=== PATIENT | male | born 1960 | race Caucasian/White ===

== ENCOUNTER → 2017-12-10 13:06 | Outpatient (CLI) | payer MEDICAID, SELFPAY ==
--- NOTE | 2017-12-10 13:18 | XR_ITS ---
XR hand RT min 3V Ordering Physician: Juan Mcgill MD Patient Age: 57 years: Male HISTORY: ITS.REASON: INJURY TO RT THUMB Pain right thumb. Injury back to June TECHNIQUE: 3 views right hand attention thumb COMPARISON :No previous relevant studies available FINDINGS The right hand is intact with no fracture nor dislocation. This hand study includes the right wrist. There are definite developing arthritic changes at the radial aspect of the wrist. Most evident narrowing and mild sclerosis and mild hypertrophic changes seen about the distal scaphoid /navicular bone-at its articulation with the trapezium and trapezoid. There may be some very early degenerative changes at the first carpal metacarpal joint but these are are less evident; minimal/equivocal IMPRESSION: 1.. No evident fracture nor dislocation. Right hand itself intact 2. Arthritic changes at the radial aspect Wrist, most pronounced about distal articulation of the scaphoid.... Only question some early degenerative changes at the first carpal-metacarpal joint. The thumb itself otherwise appears intact.
== END ==
PROVIDERS: PCP Internal Medicine Adolescent Medicine; Visit Provider Internal Medicine Adolescent Medicine
DX: S69.91XA Unspecified injury of right wrist, hand and finger(s), initial encounter (principal)
CPT/HCPCS: 73130

== ENCOUNTER → 2017-12-11 09:55 | Outpatient (CLI) | payer MEDICAID, SELFPAY ==
[2017-12-11 10:20] LABS: Basophils # 0.1 K/mm3 (0-0.2); Basophils % 1.1 % (0.1-2.0); Eosinophils # 0.3 K/mm3 (0.0-0.4); Eosinophils % 5.5 % (0.1-12.0); Hematocrit 49.3 % (42.0-52.0); Hemoglobin 16.9 g/dL (14.1-18.0); Lymphocytes # 1.8 K/mm3 (0.7-4.5); Lymphocytes % 34.7 K/mm3 (10-50); Mean Corpuscular HGB Conc 34.4 g/dL (31.8-35.4); Mean Corpuscular Volume 87.3 fl (80-94); Mean Platelet Volume 7.6 fl (7.4-10.4); Monocytes # 0.3 K/mm3 (0.1-1.0); Monocytes % 6.1 % (1.7-9.3); Neutrophils # 2.7 K/mm3 (1.8-7.8); Neutrophils % 52.6 % (37.0-80.0); Platelet Count 216 K/mm3 (142-424); Red Blood Count 5.65 M/mm3 (4.60-6.20); Red Cell Distribution Width 12.8 % (11.5-17.5); White Blood Count 5.2 K/mm3 (4.8-10.8)
[2017-12-11 11:50] LABS: Alanine Aminotransferase 51 U/L (12-78); Albumin Level 3.9 gm/dL (3.4-5.0); Albumin/Globulin Ratio 1.3 (1.1-1.8); Alkaline Phosphatase 107 U/L (46-116); Anion Gap 11.6 mEq/L (5-15); Aspartate Amino Transferase 28 U/L (15-37); Bilirubin,Total 0.7 mg/dL (0.2-1.0); Blood Urea Nitrogen 10 mg/dL (7-18); Calcium 8.9 mg/dL (8.5-10.1); Carbon Dioxide 31 mmol/L (21.0-32.0); Chloride 107 mmol/L (98-107); Chol/HDL Ratio 6.2 (1-3.5); Cholesterol 228 mg/dL (140-200); Creatinine,Serum 0.99 mg/dL (0.70-1.30); Estimated Glomerular Filt Rate 78 ml/min (>60); GFR (African American) 94 ML/MIN (>60); Globulin 2.9 gm/dl (1.3-3.2); Glucose 95 mg/dL (74-106); HDL Cholesterol 37 mg/dL (27-67); LDL Cholesterol 148 mg/dL (0-130); Potassium 4.6 mmoL/L (3.5-5.1); Sodium 145 mmol/L (136-145); Total Protein,Serum 6.8 gm/dL (6.4-8.2); Triglycerides 213 mg/dL (30-200); VLDL Cholesterol 43 mg/dL (0-40)
== END ==
PROVIDERS: Visit Provider Internal Medicine Adolescent Medicine
DX: D12.6 Benign neoplasm of colon, unspecified (principal); E78.2 Mixed hyperlipidemia
CPT/HCPCS: 36415; 80053; 80061; 85025

== ENCOUNTER → 2017-12-17 08:47 | Outpatient (CLI) | payer MEDICAID, SELFPAY ==
--- NOTE | 2017-12-17 09:01 | CT_ITS ---
CT abdomen pelvis w con CLINICAL INDICATION: Abdominal distention, follow-up hepatic cysts ITS.REASON: liver cyst ORDERING PHYSICIAN: Ezequiel Payne MD PATIENT AGE: 57 years COMPARISON: 09/11/2016 TECHNIQUE: Axial images obtained with sagittal and coronal reformats. All CT scans at the facility use one or more dose reduction, viz: automated exposure control; ma/kV adjustment per patient size (including targeted exams where dose is matched to indication; i.e. head); or iterative reconstruction technique. Images are obtained in 30 seconds, 60 seconds, and 5 minute delayed following contrast administration PROCEDURE: Oral Contrast: Redicat IV Contrast: 75 mL's of Isovue-370. FINDINGS: Lung bases are clear. Numerous varying sized isodense lesions of the liver in both right and left hepatic lobe. These do not demonstrate contrast enhancement and are consistent with multiple hepatic cysts. The largest single lesion is in the hepatic measuring 3.7 cm previously 3.5 cm. In the left hepatic lobe there is a lesion that measures 3.4 cm previously 3 cm. No obvious mural enhancement. Spleen, adrenal glands, pancreas, kidneys, and gallbladder have an unremarkable appearance. No intestinal structure free air. There is mild focal thickening of the anterior abdominal wall superior to the umbilicus similar to the previous exam possibly related to postsurgical changes or scarring. There is tiny umbilical hernia. No pelvic mass or abnormal fluid collection or focal pelvic inflammatory change. No evidence of appendicitis or diverticulitis. No acute bony anomalies. IMPRESSION: 1. Multiple hepatic cysts slightly more prominent compared to the previous study. 2. No other changes with no acute finding
== END ==
PROVIDERS: Family Provider Internal Medicine Adolescent Medicine; PCP Internal Medicine Adolescent Medicine; Visit Provider Surgery
DX: K76.89 Other specified diseases of liver (principal)
CPT/HCPCS: 74177; Q9967

== ENCOUNTER → 2018-05-25 12:55 | Outpatient (CLI) | payer MEDICAID, SELFPAY ==
[2018-05-25 14:18] LABS: Alanine Aminotransferase 38 U/L (12-78); Albumin Level 3.8 gm/dL (3.4-5.0); Albumin/Globulin Ratio 1.3 (1.1-1.8); Alkaline Phosphatase 85 U/L (46-116); Anion Gap 15.1 mEq/L (5-15); Aspartate Amino Transferase 17 U/L (15-37); Bilirubin,Total 0.8 mg/dL (0.2-1.0); Blood Urea Nitrogen 11 mg/dL (7-18); Calcium 8.4 mg/dL (8.5-10.1); Carbon Dioxide 26 mmol/L (21.0-32.0); Chloride 105 mmol/L (98-107); Chol/HDL Ratio 5.5 (1-3.5); Cholesterol 225 mg/dL (140-200); Creatinine,Serum 1.02 mg/dL (0.70-1.30); Estimated Glomerular Filt Rate 75 ml/min (>60); GFR (African American) 91 ML/MIN (>60); Glucose 96 mg/dL (74-106); HDL Cholesterol 41 mg/dL (27-67); LDL Cholesterol 146 mg/dL (0-130); Potassium 4.1 mmoL/L (3.5-5.1); Prostate Specific Ag Screen 0.8 ng/mL (0.0-4.0); Sodium 142 mmol/L (136-145); Total Protein,Serum 6.8 gm/dL (6.4-8.2); Triglycerides 189 mg/dL (30-200); VLDL Cholesterol 38 mg/dL (0-40)
== END ==
PROVIDERS: Visit Provider Nurse Practitioner Family
DX: E78.2 Mixed hyperlipidemia (principal); N40.0 Benign prostatic hyperplasia without lower urinary tract symptoms; Z12.5 Encounter for screening for malignant neoplasm of prostate
CPT/HCPCS: 36415; 80053; 80061; G0103

== ENCOUNTER → 2018-09-12 11:12 | Outpatient (CLI) | payer MEDICAID, SELFPAY ==
--- NOTE | 2018-09-12 11:16 | XR_ITS ---
XR ankle wt bearing LT min 3V HISTORY: ITS.REASON: Pain ORDERING PHYSICIAN: Dina Tapia DPM PATIENT AGE: 58 years Comparison: None FINDINGS: No fracture or dislocation. No lytic or blastic change. There is normal mineralization.. The joint spaces are well-preserved. No significant degenerative/arthritic changes. No erosive changes evident. IMPRESSION: Negative ankle, no acute finding
--- NOTE | 2018-09-12 11:16 | XR_ITS ---
XR foot wt bearing RT 3V HISTORY: Foot pain, prior foot surgeries ITS.REASON: pain ORDERING PHYSICIAN: Dina Tapia DPM PATIENT AGE: 58 years COMPARISON: None FINDINGS: There are no previous exams available for comparison. There is calcaneocuboid fusion with pes planus. It is uncertain whether this fusion is congenital or due to arthrodesis. Please correlate with surgical history. Mild osteoarthritic changes of the posterior talocalcaneal joint. No acute fracture or dislocation. 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
--- NOTE | 2018-09-12 11:16 | XR_ITS ---
XR ankle wt bearing RT min 3V HISTORY: ITS.REASON: pain ORDERING PHYSICIAN: Dina Tapia DPM PATIENT AGE: 58 years Comparison: None FINDINGS: There are no previous exams available for comparison. There is mild flattening of the talus anteriorly. No obvious focal talar dome defects. There is calcaneocuboid fusion with pes planus. It is uncertain whether this fusion is congenital or due to arthrodesis. Please correlate with surgical history. Mild osteoarthritic changes of the posterior talocalcaneal joint. No acute fracture or dislocation. IMPRESSION: 1. Flattening of the talus anteriorly 2. Fusion of the calcaneocuboid joint with pes planus and mild osteoarthritic changes of the posterior subtalar joint
--- NOTE | 2018-09-12 11:16 | XR_ITS ---
XR foot wt bearing LT 3V HISTORY: ITS.REASON: pain ORDERING PHYSICIAN: Dina Tapia DPM PATIENT AGE: 58 years COMPARISON: None FINDINGS: No fracture or dislocation. No lytic or blastic change. There is normal mineralization.. The joint spaces are well-preserved. No significant degenerative/arthritic changes. No erosive changes evident. IMPRESSION: Negative, no acute finding
== END ==
PROVIDERS: PCP Internal Medicine Adolescent Medicine; Visit Provider Podiatrist
DX: M79.672 Pain in left foot (principal); M79.671 Pain in right foot
CPT/HCPCS: 73610; 73630

== ENCOUNTER → 2019-08-14 09:42 | Outpatient (CLI) | payer OTHER, SELFPAY ==
[2019-08-14 10:02] LABS: Basophils # 0.1 K/mm3 (0-0.2); Basophils % 1.4 % (0.1-2.0); Eosinophils # 0.4 K/mm3 (0.0-0.4); Eosinophils % 5.6 % (0.1-12.0); Hematocrit 49.3 % (42.0-52.0); Hemoglobin 16.7 g/dL (14.1-18.0); Lymphocytes # 1.9 K/mm3 (0.7-4.5); Lymphocytes % 29.8 % (10-50); Mean Corpuscular HGB Conc 33.8 g/dL (31.8-35.4); Mean Corpuscular Hemoglobin 29.8 pg (27.0-31.2); Mean Corpuscular Volume 88.1 fl (80-94); Mean Platelet Volume 7.6 fl (7.4-10.4); Monocytes # 0.4 K/mm3 (0.1-1.0); Monocytes % 5.7 % (1.7-9.3); Neutrophils # 3.7 K/mm3 (1.8-7.8); Neutrophils % 57.5 % (37.0-80.0); Platelet Count 244 K/mm3 (142-424); Red Cell Distribution Width 13.1 % (11.5-17.5); White Blood Count 6.5 K/mm3 (4.8-10.8)
[2019-08-14 11:30] LABS: Alanine Aminotransferase 34 U/L (12-78); Albumin Level 3.8 gm/dL (3.4-5.0); Albumin/Globulin Ratio 1.4 (1.1-1.8); Alkaline Phosphatase 88 U/L (46-116); Anion Gap 13.6 mEq/L (5-15); Aspartate Amino Transferase 19 U/L (15-37); Bilirubin,Total 0.8 mg/dL (0.2-1.0); Blood Urea Nitrogen 13 mg/dL (7-18); Calcium 8.7 mg/dL (8.5-10.1); Carbon Dioxide 30 mmol/L (21.0-32.0); Chloride 109 mmol/L (98-107); Chol/HDL Ratio 4.7 (1-3.5); Cholesterol 196 mg/dL (140-200); Creatinine,Serum 1.19 mg/dL (0.70-1.30); Estimated Glomerular Filt Rate 63 ml/min (>60); GFR (African American) 76 ML/MIN (>60); Globulin 2.7 gm/dl (1.3-3.2); Glucose 97 mg/dL (74-106); HDL Cholesterol 42 mg/dL (27-67); LDL Cholesterol 122 mg/dL (0-130); Potassium 4.6 mmoL/L (3.5-5.1); Prostate Specific Ag Screen 0.8 ng/mL (0.0-4.0); Sodium 148 mmol/L (136-145); Total Protein,Serum 6.5 gm/dL (6.4-8.2); Triglycerides 158 mg/dL (30-200); VLDL Cholesterol 32 mg/dL (0-40)
== END ==
PROVIDERS: Visit Provider Nurse Practitioner Family
DX: D12.6 Benign neoplasm of colon, unspecified (principal); E78.2 Mixed hyperlipidemia; Z12.5 Encounter for screening for malignant neoplasm of prostate; N40.0 Benign prostatic hyperplasia without lower urinary tract symptoms
CPT/HCPCS: 36415; 80053; 80061; 85025; G0103

== ENCOUNTER → 2020-09-28 09:03 | Outpatient (CLI) | payer OTHER, SELFPAY ==
[2020-09-28 09:20] LABS: Basophils # 0.1 K/mm3 (0-0.2); Basophils % 0.9 % (0.1-2.0); Eosinophils # 0.2 K/mm3 (0.0-0.4); Hematocrit 46.2 % (42.0-52.0); Lymphocytes # 3.2 K/mm3 (0.7-4.5); Lymphocytes % 27.9 % (10-50); Mean Corpuscular HGB Conc 34.7 g/dL (31.8-35.4); Mean Corpuscular Hemoglobin 29.8 pg (27.0-31.2); Mean Corpuscular Volume 85.9 fl (80-94); Mean Platelet Volume 7.5 fl (7.4-10.4); Monocytes # 0.6 K/mm3 (0.1-1.0); Monocytes % 5.5 % (1.7-9.3); Neutrophils # 7.2 K/mm3 (1.8-7.8); Neutrophils % 63.6 % (37.0-80.0); Platelet Count 241 K/mm3 (142-424); Red Blood Count 5.38 M/mm3 (4.60-6.20); Red Cell Distribution Width 13.2 % (11.5-17.5); White Blood Count 11.3 K/mm3 (4.8-10.8)
[2020-09-28 10:18] LABS: Chloride 105 mmol/L (98-107)
[2020-09-28 10:19] LABS: Potassium 3.8 mmoL/L (3.5-5.1); Sodium 141 mmol/L (136-145)
[2020-09-28 10:21] LABS: Alanine Aminotransferase 30 U/L (12-78); Albumin/Globulin Ratio 1.6 (1.1-1.8); Alkaline Phosphatase 82 U/L (38-126); Anion Gap 8.8 mEq/L (5-15); Aspartate Amino Transferase 26 U/L (17-59); Bilirubin,Total 0.9 mg/dl (0.2-1.3); Blood Urea Nitrogen 11 mg/dl (9-20); Carbon Dioxide 31 mmol/L (22.0-30.0); Estimated Glomerular Filt Rate 76 ml/min (>60); GFR (African American) 92 ML/MIN (>60); Globulin 2.5 g/dL (1.3-3.2); Total Protein,Serum 6.5 g/dl (6.3-8.2)
[2020-09-28 10:22] LABS: Calcium 8.8 mg/dl (8.4-10.2); Chol/HDL Ratio 4.6 (1-3.5); Cholesterol 203 mg/dl (140-200); Glucose 84 mg/dl (74-100); HDL Cholesterol 44 mg/dl (40-60); Triglycerides 165 mg/dl (30-150); VLDL Cholesterol 33 mg/dL (0-40)
[2020-09-28 10:33] LABS: Direct LDL Cholesterol 126.36 mg/dL (100-129)
== END ==
PROVIDERS: Visit Provider Nurse Practitioner Family
DX: E78.2 Mixed hyperlipidemia (principal); K76.89 Other specified diseases of liver
CPT/HCPCS: 36415; 80053; 80061; 85025

== ENCOUNTER → 2021-05-01 11:21 | Outpatient (CLI) | payer OTHER, SELFPAY ==
[2021-05-01 11:32] LABS: Basophils # 0.1 K/mm3 (0-0.2); Eosinophils # 0.3 K/mm3 (0.0-0.4); Hematocrit 49.7 % (42.0-52.0); Mean Corpuscular HGB Conc 34.2 g/dL (31.8-35.4); Mean Corpuscular Hemoglobin 30.3 pg (27.0-31.2); Mean Corpuscular Volume 88.8 fl (80-94); Mean Platelet Volume 7.9 fl (7.4-10.4); Monocytes # 0.4 K/mm3 (0.1-1.0); Monocytes % 6.3 % (1.7-9.3); Neutrophils # 3.5 K/mm3 (1.8-7.8); Neutrophils % 55.7 % (37.0-80.0); Platelet Count 230 K/mm3 (142-424); Red Cell Distribution Width 13.1 % (11.5-17.5); White Blood Count 6.2 K/mm3 (4.8-10.8)
[2021-05-01 12:09] LABS: Chloride 104 mmol/L (98-107); Sodium 142 mmol/L (136-145)
[2021-05-01 12:11] LABS: Alanine Aminotransferase 25 U/L (12-78); Alkaline Phosphatase 84 U/L (38-126); Aspartate Amino Transferase 29 U/L (17-59); Bilirubin,Total 0.9 mg/dl (0.2-1.3); Blood Urea Nitrogen 10 mg/dl (9-20); Estimated Glomerular Filt Rate 86 ml/min (>60); GFR (African American) 104 ML/MIN (>60)
[2021-05-01 12:12] LABS: Albumin Level 3.9 g/dl (3.5-5.0); Albumin/Globulin Ratio 1.6 (1.1-1.8); Carbon Dioxide 31 mmol/L (22.0-30.0); Chol/HDL Ratio 5.1 (1-3.5); Cholesterol 190 mg/dl (140-200); Creatine Kinase 37 U/L (55-170); Globulin 2.5 g/dL (1.3-3.2); Glucose 96 mg/dl (74-100); HDL Cholesterol 37 mg/dl (40-60); Magnesium 1.8 mg/dl (1.6-2.3); Total Protein,Serum 6.4 g/dl (6.3-8.2); Triglycerides 190 mg/dl (30-150); VLDL Cholesterol 38 mg/dL (0-40)
[2021-05-01 13:08] LABS: Thyroid Stimulating Hormone 2.77 uIU/mL (0.465-4.68)
== END ==
PROVIDERS: Visit Provider Nurse Practitioner Family
DX: E78.2 Mixed hyperlipidemia (principal); R25.2 Cramp and spasm
CPT/HCPCS: 36415; 80053; 80061; 82550; 83735; 84443; 85025

== ENCOUNTER → 2021-05-16 09:58 | Outpatient (CLI) | payer OTHER, SELFPAY ==
--- NOTE | 2021-05-16 10:03 | XR_ITS ---
PROCEDURE: XR LUMBAR SPINE MIN 4V CLINICAL INDICATION: LUMBAGO W/ SCIATICA, RT SIDE COMPARISON: No exams were available for comparison FINDINGS: There is normal curvature and alignment. All lumbar vertebrae appear intact and disc spaces are well maintained throughout. There is no pars defect. The SI joints appear normal. There are mild hypertrophic facet changes at the L4-5 and L5-S1 levels. IMPRESSION: Mild hypertrophic facet changes lower lumbar spine otherwise unremarkable study Dictated by: Dr. Miguel Angel Olvera MD 05/16/2021 10:35 Dr. Miguel Angel Olvera MD in [facility] 05/16/2021 10:35
== END ==
PROVIDERS: PCP Nurse Practitioner Family; Visit Provider Nurse Practitioner Family
DX: M54.41 Lumbago with sciatica, right side (principal)
CPT/HCPCS: 72110

== ENCOUNTER → 2021-06-12 08:31 | Outpatient (CLI) | payer OTHER, SELFPAY ==
--- NOTE | 2021-06-12 08:35 | FL_ITS ---
PROCEDURE: FL UPPER GI W AIR CLINICAL INDICATION: GERD COMPARISON: No exams were available for comparison TECHNIQUE: FLUOROSCOPY TIME : 2 minutes and 9 seconds FINDINGS: The esophagus, stomach, and duodenum have an unremarkable appearance.There is no evidence of hiatal hernia. No ulcer or mass evident. No mucosal abnormalities apparent. There is normal peristalsis. The duodenal C-loop is nondisplaced. Reflux was not demonstrated during the exam. IMPRESSION: Unremarkable upper GI. Dictated by: Hi Gallegos MD 06/12/2021 17:04 Hi Gallegos MD in [facility] 06/12/2021 17:04
== END ==
PROVIDERS: PCP Nurse Practitioner Family; Visit Provider Nurse Practitioner Family
DX: K21.00 Gastro-esophageal reflux disease with esophagitis, without bleeding (principal)
CPT/HCPCS: 74246

== ENCOUNTER 2021-07-01 14:30 | Outpatient (RCR) | payer OTHER, SELFPAY ==
--- NOTE | 2021-05-16 11:29 | HMH.PTOPEV ---
PT Outpatient Evaluation Rehab PT Outpatient Evaluation Start: 05/16/21 11:19 Freq: Status: Active Protocol: Document 05/16/21 11:19 EDUIN (Rec: 05/16/21 11:29 EDUIN [id number]) Electronically Signed By Dick Palacio, PT 05/16/21 11:19 Outpatient Therapy Subjective History Subjective History Pt reports insidious onset right sided LBP beginning ~2-3 months ago. Pt reports pain refers from right hip to right foot w/'throbbing, weakness, and sometimes it feels like my knee wants to buckle backwards'. Pt reports previous right achilles injury , and h/o club foot. 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 Chief Complaint Pain,Stiff,Clicks,Gives out/ Unstable,Paresthesia,Weakness Symptom Type Ache,Throb,Sharp,Dull,Stabbing ,Burning,Numbness,Tingling Symptoms Relieved By Rest/Positioning,Heat Symptoms Aggravated By Sitting,Standing,Bending/ Stooping,Physical Activity, Twisting,Walking,Lifting Prior Functional Limitations Lifting,Housework,Standing, Sitting,Walking,Bending/ Stooping Current Functional Limitations Lifting,Housework,Standing, Sitting,Walking,Bending/ Stooping Symptom Description Constant but Variable Level of pain today (0-10) 5 Pain scale - at its best (0-10) 5 Pain scale - at its worst (0-10) 10 Lumbopelvic Eval Posture Thoracic Spine Posture Standing Position Flattened Lumbar Spine Posture Standing Position Flattened Assistive device Assistive Devices None / NA Gait Observation General Gait Pattern Observation Antalgic Gait Palapation tenderness right lumbar spinal tenderness Yes: 3/4 paraspinal tenderness Yes: 3/4 buttock tenderness Yes: 3/4 Lumbar/Sacral Palpation Findings Tenderness,Trigger Point, Muscle Guarding Accessory Movement L-spine Vertebrae Accessory Movements Central P/A Casey that Elicit Symptoms L3 right L4 right L5 right Range of Motion Lumbar Spine Active Flexion Range of 0-40 Motion (degrees) Lumbar Spine Active Extension Range of 0-10 Motion (degrees)
--- NOTE | 2021-06-17 15:05 | HMH.RHREAS ---
Rehab Reassessment Rehab OP Re-assessment Start: 06/17/21 14:46 Freq: Status: Active Protocol: Document 06/17/21 14:47 EDUIN (Rec: 06/17/21 15:05 [email or web address] [id number]) Electronically Signed By Dick Palacio, PT 06/17/21 14:47 Rehab Re-assessment Subjective Subjective Pt reports improved RLE weakness, LBP, and 'most importantly the numbness is my right leg is better', reports 1-2/10 LBP on VAS Objective Objective Notes AROM: LUMBAR FLX 0-64, EXT 0- 18, R SB 0-31, L SB 0-21 MMT: R HIP FLX 4+/5, R KNEE EXT 5/5, R KNEE FLX 4+/5, R DF 5/5 TTP: ANA ROSA. LUMBAR PARA 2/4, ANA ROSA . PIRI/GLUT 2/4 Assessment Progress Assessment Progressing as Expected Assessment Notes IMPROVED ROM, STRENGTH, AND TTP Patient goals met STG'S 04/13 LTG'S 11/13 Goals Not Met LTG'S 01/13 Plan Plan Pt to continue w/skilled P.T. to make further improvements in AROM, strength, and TPP to allow for optimal function Frequency of Therapy 2-3x/wk Duration of therapy 4-6wks Time and Billing Re-Eval Time 15 Re-Eval Billing Units 1 PHYSICIAN CERTIFICATION: I certify the specified therapy services for Thad Fontana are required, authorized, and reviewed every 30 days.
== END 2021-07-01 14:35 | disposition home or self-care (01) ==
LOC: PT 14:30
PROVIDERS: PCP Internal Medicine Adolescent Medicine; Visit Provider Nurse Practitioner Family
DX: M54.41 Lumbago with sciatica, right side (principal)
CPT/HCPCS: 97010; 97012; 97014; 97110; 97163; 97164; G0283

== ENCOUNTER → 2021-08-27 11:58 | Outpatient (CLI) | payer OTHER, SELFPAY | PROVIDERS: Visit Provider Surgery | DX: Z01.812 Encounter for preprocedural laboratory examination (principal); Z11.52 Encounter for screening for COVID-19; Z13.810 Encounter for screening for upper gastrointestinal disorder | CPT/HCPCS: C9803; U0003; U0005 ==

== ENCOUNTER 2021-08-29 09:19 | Day surgery (SDC) | payer OTHER, SELFPAY ==
[2021-08-25 12:09] VITALS: BMI 36.9
[2021-08-29 09:46] VITALS: BP 135/87; PULSE 78; RESP 16; TEMP 36.6; O2SAT 96
[2021-08-29 10:07] VITALS: O2SAT 97
--- NOTE | 2021-08-29 10:26 | HMH.SCOPE ---
- Procedure: Date: 08/29/21 Patient Date of :: 1960 Procedure Performed:: Esophagogastroduodenoscopy with biopsies Indications:: Patient is a 60-year-old male whom I have seen in the past. He presents for EGD. He had previously seen Dr. Walsh and had an abnormal HIDA scan with biliary dyskinesia and also had an umbilical hernia. Dr. Walsh's plan at that time was to perform cholecystectomy and umbilical hernia repair but the patient declined cholecystectomy as he was seemingly asymptomatic from his gallbladder and elected to only undergo umbilical hernia repair with placement of Bard prefix mesh plug as a supraumbilical incision. In the past patient has had a plethora of GI symptoms. He previously had been seen several years ago with some complaints of abdominal bloating and swelling. He has seen Dr. Wilian Miranda in [place] and had previously undergone extremely thorough work-up including endoscopies, colonoscopy, and capsule endoscopy. He had previous imaging revealing multiple liver cysts which gastroenterology had been addressing. Patient has been on omeprazole for quite some time for reflux. He states that it is no longer helping. He has symptoms of acid reflux and actually has symptoms consistent with waterbrash and regurgitation of acid. He states that this seems to be worse when he has eaten spicy tomato-based foods such as pizza. He also had similar symptoms with fatty food intake. He describes abdominal bloating. I felt that the patient symptoms are likely multifactorial. I will start with an EGD to assess for degree of reflux, possible hiatal hernia, and H. pylori status. May need subsequent follow-up gallbladder work-up again. If surgery is ultimately entertained would likely need laparoscopy possibly with removal of previously placed Bard prefix mesh plug and laparoscopic cholecystectomy. Performing Provider:: Ezequiel Payne MD Referring Provider:: None Sedation:: MAC sedation Procedure:: Patient was taken to endoscopy procedure room. He was positioned in lateral decubitus position. Adequate intravenous sedation was achieved with anesthesia titration of propofol. Olympus endoscope was inserted via the oropharynx. Esophagus was cannulated. Endoscope was advanced. Gastroesophageal junction was encountered at approximately 40 cm from the incisors. There were findings possibly consistent with short segment Moulton's. Stomach was cannulated and insufflated. Retroflexion revealed no evidence of any pathologic hiatal hernia. There was some mild diffuse gastritis which was minimal and nonerosive. There were a couple of gastric fundic gland polyps. Biopsy was obtained of the antrum for CLOtest for H. pylori. Pylorus was traversed. Within the duodenal bulb there was a focal area of nonerosive duodenitis. Biopsy was obtained. Remainder of the duodenum appeared unremarkable. The ampulla of Vater was identified with obvious bile secretion. Endoscope was once again withdrawn into the stomach. Gastric antral mucosal biopsy was obtained for histopathologic analysis. Biopsy was obtained of gastric fundic gland polyp. Endoscope was withdrawn into the distal esophagus and a couple biopsies were obtained at the gastroesophageal junction to evaluate for possible Moulton's esophagus. Random distal esophageal biopsies were obtained. Stomach was desufflated and endoscope was withdrawn. Findings:: Gastroesophageal junction at 40 cm from the incisors Possible short segment Moulton's esophagus at the gastroesophageal junction Very minimal subtle nonerosive gastritis Focal minimal nonerosive duodenitis Presumed gastric fundic gland polyps Recommendations:: Follow-up on histopathology. Treat H. pylori if positive. May need higher dose proton pump inhibitor. Could require repeat gallbladder work-up. Consideration may be also given for gastric emptying scan if this has not been done. Complications::
[2021-08-29 10:30] VITALS: BP 124/85; PULSE 87; RESP 15; TEMP 36.6; O2SAT 96
[2021-08-29 10:40] VITALS: BP 121/79; PULSE 77; RESP 16; O2SAT 94
[2021-08-29 10:50] VITALS: BP 125/79; PULSE 71; RESP 16; O2SAT 95
[2021-08-29 11:00] VITALS: BP 132/79; PULSE 64; RESP 16; O2SAT 95
--- NOTE | 2021-08-29 12:21 | HMH.ANESCL ---
[facility] Anesthesia Checklist - Patient Identification Patient Identification: Arm Band, Verbal (Name & ) - Structural Data Admitted From: Home Planned Operative Procedure/s: EGD Consent for Planned Operative Procedure(s) Verified: Yes Verified Documents: Surgical Consent - NPO Status Verified Time NPO: 00:00 - Neurological Assessment Level of Consciousness: Awake, Alert, Appropriate - Anesthesia Plan Anesthesia Risk discussed: Yes ASA Class: III Anesthesia Type: MAC [facility] History I have reviewed the patient's past medical history: Yes Medical History: Reports:: Gastroesophageal Reflux Disease(GERD), Hyperlipidemia, Hypertension Denies:: Cancer, Diabetes Mellitus Type 1, Diabetes Mellitus Type 2, Internal Pacemaker, MRSA, Seizures *Have you ever received a pneumonia vaccine?: Yes *Have you received a flu vaccine this season?: Yes Other Medical History: Reports: Sinus Problems Anesthesia experience/problems:: none Other Surgeries: Yes: No Previous Surgery, Colonoscopy, EGD, Hernia Repair. No: Pacemaker Amputation: No Fractures: Yes (5th met Right Foot) - *Social History Last grade of school completed: High school graduate Smoking Status: Former smoker Tobacco Type: cigarettes Alcohol Intake: current Alcohol Intake Frequency:: a few times a month Substance Use Type: denies use *Occupational Status:: employed Housing: house *Travel in the last 8 weeks: None Family Hx:: Hypertension, Diabetes, Stroke, Hyperlipidemia
== END 2021-08-29 11:00 | disposition home or self-care (01) ==
LOC: OUTP 09:19
PROVIDERS: PCP Nurse Practitioner Family; Visit Provider Surgery
PROC: 0DJ08ZZ Inspection of Upper Intestinal Tract, Via Natural or Artificial Opening Endoscopic (ICD-10-PCS; CPT 43235; principal; 2021-08-29 10:30)
DX: Z87.19 Personal history of other diseases of the digestive system (principal); K22.70 Barrett's esophagus without dysplasia; K29.60 Other gastritis without bleeding; K29.80 Duodenitis without bleeding; K31.7 Polyp of stomach and duodenum; E78.5 Hyperlipidemia, unspecified; I10 Essential (primary) hypertension; K21.9 Gastro-esophageal reflux disease without esophagitis; Z87.891 Personal history of nicotine dependence
CPT/HCPCS: 43239; 87339

== ENCOUNTER → 2021-09-22 08:17 | Outpatient (CLI) | payer OTHER, SELFPAY ==
--- NOTE | 2021-09-22 08:18 | NM_ITS ---
FINAL REPORT TECHNIQUE: The patient received a standard meal with 0.55 MCI of TC sulfur colloid. Images of the abdomen were obtained. The T 1/2 was calculated. CLINICAL HISTORY: stomach pain 9:25AM 0.55 MCI TC SULFUR COLLOID INJ INTO 2 WHOLE EGGS, 2 PC OF TOAST AND WATER FINDINGS: Images of the abdomen are unremarkable. The T 1/2 is 108 minutes, which is abnormally prolonged. Findings may be related to gastroparesis or gastric outlet obstruction. IMPRESSION: Abnormally long T-1/2. Findings may be related to gastroparesis or gastric outlet obstruction. Reviewed, Interpreted and Dictated by Michael Cordova MD Transcribed by Glo Ruiz Authenticated by Michael Cordova MD on 09/22/2021 03:02:15 PM [facility]
--- NOTE | 2021-09-22 08:18 | US_ITS ---
FINAL REPORT CLINICAL HISTORY: Right upper pain FINDINGS: ULTRASOUND RIGHT UPPER QUADRANT Sonographic imaging of the right upper quadrant was obtained. The pancreas is partially obscured. There are numerous cysts within the liver. There is sludge within the gallbladder without evidence of gallstones. There is echogenic nonshadowing focus within the gallbladder consistent with a polyp. There is no gallbladder wall thickening. There is no biliary ductal dilatation. The common duct is normal at 3 mm. Limited images of the right kidney are unremarkable. IMPRESSION: Multiple hepatic cysts. Sludge within the gallbladder without evidence of gallstones. Echogenic nonshadowing focus within the gallbladder consistent with a polyp. Reviewed, Interpreted and Dictated by Michael Cordova MD Transcribed by Christie Boyce Authenticated by Michael Cordova MD on 09/22/2021 10:46:26 AM [facility]
== END ==
PROVIDERS: PCP Nurse Practitioner Family; Visit Provider Surgery
DX: R10.9 Unspecified abdominal pain (principal)
CPT/HCPCS: 76705; 78264

== ENCOUNTER → 2022-06-01 10:15 | Outpatient (CLI) | payer OTHER, SELFPAY ==
--- NOTE | 2022-06-01 10:22 | XR_ITS ---
FINAL REPORT CLINICAL HISTORY: foot pain FINDINGS: RIGHT CALCANEUS 2 views were obtained. There is no acute fracture. Now soft tissue abnormality. IMPRESSION: No acute fracture. Cannot exclude calcaneocuboid fusion. If there is concern for tarsal coalition recommend CT. Reviewed, Interpreted and Dictated by Jason Moya MD Transcribed by Mark Garibay Authenticated and [facility]
--- NOTE | 2022-06-01 10:22 | XR_ITS ---
FINAL REPORT CLINICAL HISTORY: foot pain FINDINGS: 3 views of the right foot were obtained. There is no acute fracture or dislocation. The joint spaces are intact. The soft tissues are unremarkable. IMPRESSION: No acute fracture. Cannot exclude calcaneocuboid fusion. If there is concern for tarsal coalition recommend CT. Reviewed, Interpreted and Dictated by Jason Moya MD Transcribed by Mark Garibay Authenticated and [facility]
--- NOTE | 2022-06-01 10:22 | XR_ITS ---
FINAL REPORT CLINICAL HISTORY: ankle pain FINDINGS: RIGHT ANKLE: Three views of the right ankle were obtained. There is no acute fracture or dislocation. The joint spaces and mortise are intact. There is no soft tissue abnormality. IMPRESSION: No acute process. Reviewed, Interpreted and Dictated by Jason Moya MD Transcribed by Mark Garibay Authenticated and [facility]
== END ==
PROVIDERS: PCP Nurse Practitioner Family; Visit Provider Podiatrist
DX: M79.671 Pain in right foot (principal); M25.571 Pain in right ankle and joints of right foot
CPT/HCPCS: 73610; 73630; 73650

== ENCOUNTER 2022-06-01 10:42 | Outpatient (RCR) | payer OTHER, SELFPAY | END 2022-06-01 11:45 | disposition home or self-care (01) | LOC: PT 10:42 | PROVIDERS: Visit Provider Podiatrist | DX: M19.071 Primary osteoarthritis, right ankle and foot (principal); Q66.89 Other specified congenital deformities of feet; M25.371 Other instability, right ankle | CPT/HCPCS: 97760 ==

== ENCOUNTER → 2022-06-10 10:32 | Outpatient (CLI) | payer OTHER, SELFPAY ==
--- NOTE | 2022-06-10 10:32 | MR_ITS ---
FINAL REPORT CLINICAL HISTORY: ankle pain right ankle pain burning sensation on the lateral side of right ankle pain when walking or standing hx club foot of the right foot per patient he stated he tore his achilles x 15 years ago, didnt have it repaired FINDINGS: Multiplanar MR imaging of the right ankle was performed without contrast. There is no fracture. There are mild degenerative changes. There are multiple subchondral cysts. There is irregularity of the anterior talofibular ligament that may represent a partial tear. There is mild distal Achilles tendinitis and peritendinitis. There is mild peroneus longus tenosynovitis. The posterior plantar aponeurosis is intact. No significant joint effusion is seen. The musculature is intact. There is no evidence of soft tissue mass or cyst. IMPRESSION: Irregularity of the anterior talofibular ligament represent partial tear. Mild distal Achilles tendinitis and peritendinitis. Mild peroneus longus tenosynovitis. Mild degenerative change. Reviewed, Interpreted and Dictated by Ezequiel Oliver III, MD Transcribed by Mark Garibay Authenticated and [facility]
== END ==
PROVIDERS: PCP Nurse Practitioner Family; Visit Provider Podiatrist
DX: M25.571 Pain in right ankle and joints of right foot (principal); M25.371 Other instability, right ankle
CPT/HCPCS: 73721

== ENCOUNTER → 2022-07-03 10:28 | Outpatient (CLI) | payer OTHER, SELFPAY ==
[2022-07-03 10:51] LABS: Adenovirus F 40/41, stool Not Detected (NotDetected); Astrovirus Not Detected (NotDetected); Campylobacter Not Detected (NotDetected); Clostridium Difficile A/B, PCR Not Detected (NotDetected); Cryptosporidium Not Detected (NotDetected); Cyclospora Cayetanesis Not Detected (NotDetected); Entamoeba histolytica Not Detected (NotDetected); Enteroaggregative E coli Not Detected (NotDetected); Enteropathogenic E coli Not Detected (NotDetected); Enterotoxigenic E coli Not Detected (NotDetected); Giardia lamblia Not Detected (NotDetected); Norovirus Not Detected (NotDetected); Plesimonas Shigalloides, PCR Not Detected (NotDetected); Rotavirus A Not Detected (NotDetected); Salmonella, PCR Not Detected (NotDetected); Sapovirus Not Detected (NotDetected); Shiga-like toxin E coli Not Detected (NotDetected); Shigella Enterovasive E coli Not Detected (NotDetected); Vibrio Cholerae Not Detected (NotDetected); Vibrio, PCR Not Detected (NotDetected); Yersinia Entercolitica, PCR Not Detected (NotDetected)
== END ==
PROVIDERS: PCP Nurse Practitioner Family; Visit Provider Physician Assistant
DX: K52.89 Other specified noninfective gastroenteritis and colitis (principal)
CPT/HCPCS: 87507

== ENCOUNTER → 2022-12-10 14:38 | Outpatient (CLI) | payer OTHER, SELFPAY ==
--- NOTE | 2022-12-10 14:38 | CT_ITS ---
FINAL REPORT CLINICAL HISTORY: Rt ankle pain x yrs, hx torn achilles and 14 reconstructive surgeries for club foot. FINDINGS: CT RIGHT ANKLE TECHNIQUE: Thin section axial CT with sagittal and coronal reconstructions.3 D reconstructions were performedon a separate workstation. FINDINGS: No fracture is present. There is no subluxation or dislocation. . There is fusion of the calcaneocuboid joint. It is unknown whether this is congenital or postoperative. No bone destruction is seen. Mild degenerative changes of the ankle and hindfoot are noted. No calcified joint bodies are seen. Generalized osteopenia is noted. Ankle mortise appears intact. IMPRESSION: 1. No fracture 2. Degenerative changes without bony destruction 3. Fusion of the calcaneocuboid joint This study was performed using automated techniques to achieve radiation exposure as low as reasonably achievable Authenticated and [facility]
== END ==
PROVIDERS: PCP Nurse Practitioner Family; Visit Provider Podiatrist
DX: M25.571 Pain in right ankle and joints of right foot (principal); M25.371 Other instability, right ankle; M76.61 Achilles tendinitis, right leg; G89.29 Other chronic pain
CPT/HCPCS: 73700

== ENCOUNTER → 2023-01-14 13:49 | Outpatient (CLI) | payer OTHER, SELFPAY ==
--- NOTE | 2023-01-14 13:58 | US_ITS ---
FINAL REPORT CLINICAL HISTORY: CHEST WALL MASS COMPARISON: None FINDINGS: SOFT TISSUE ULTRASOUND Sonographic images were obtained of the area of interest in the left posterior neck. No obvious mass identified in the palpable area. IMPRESSION: No abnormality identified. Reviewed, Interpreted and Dictated by Ezequiel Oliver III, MD Transcribed by Cynthia Chi Authenticated and [facility]
== END ==
PROVIDERS: PCP Nurse Practitioner Family; Visit Provider Nurse Practitioner Family
DX: R22.2 Localized swelling, mass and lump, trunk (principal)
CPT/HCPCS: 76604

== ENCOUNTER → 2023-01-21 14:04 | Outpatient (CLI) | payer OTHER, SELFPAY | PROVIDERS: PCP Internal Medicine Adolescent Medicine; Visit Provider Podiatrist | DX: M25.571 Pain in right ankle and joints of right foot (principal) ==

== ENCOUNTER → 2023-03-10 09:07 | Outpatient (CLI) | payer OTHER, SELFPAY ==
--- NOTE | 2023-03-10 09:12 | XR_ITS ---
FINAL REPORT CLINICAL HISTORY: right knee pain COMPARISON: None FINDINGS: Three views of the right knee reveal no evidence of fracture or dislocation. The bony alignment is normal. The joint spaces are preserved. There is no evidence of joint effusion. No localized soft tissue abnormality is identified. IMPRESSION: No acute abnormality identified. Reviewed, Interpreted and Dictated by Ezequiel Oliver III, MD Transcribed by Sherri Mcconnell Authenticated and [facility]
== END ==
PROVIDERS: PCP Nurse Practitioner Family; Visit Provider Orthopaedic Surgery
DX: M25.561 Pain in right knee (principal)
CPT/HCPCS: 73562

== ENCOUNTER 2023-12-09 12:34 | Outpatient (CLI) | payer OTHER, SELFPAY ==
--- OUTSIDE RECORDS SUMMARY | 2023-12-09 12:36 | XMS_ITS | Patient Health Record ---
Author Name Unknown Organization [facility] Address [address] [place] [address] Care Team Providers Care Steam Fitter Name Role Phone May Aviles Primary Care Provider Juan Mcgill Unavailable [phone] May Wright Unavailable [phone] ALLERGIES Allergen (clinical drug ingredient) Drug/Non Drug Allergy documented on EMR Reaction Allergy Type Onset Date Status epidural injections (uncoded) Unknown Allergy Active RESULTS Component Value Reference Range Notes Urinalysis Reviewed date:01/06/2023 06:18:54 PM Interpretation: Performing Lab: Notes/Report: Color/Clarity yellow clear Leuk neg Nitrite neg Urobili 1.0 Protein neg pH 7.0 Blood neg Sp. Gr. 1.025 Ketone neg Bili neg Glucose neg Ultrasound : Soft Tissue Reviewed date:01/15/2023 11:47:49 AM Interpretation: Performing Lab: Notes/Report: LIPID PANEL, STANDARD (7600) Reviewed date:04/07/2023 08:53:50 AM Interpretation: Performing Lab:CB, [facility], [place] Nikhil Mukherjee Notes/Report: FASTING: YES FASTING:YES NON-FASTING; NON-FASTING; NON-FASTING; NON-FASTING CHOLESTEROL, TOTAL 174 <200 mg/dL HDL CHOLESTEROL 40 > OR = 40 mg/dL TRIGLYCERIDES 129 <150 mg/dL LDL-CHOLESTEROL 110 Reference range: <100 Desirable range <100 mg/dL for primary prevention; <70 mg/dL for patients with CHD or diabetic patients with > or = 2 CHD risk factors. LDL-C is now calculated using the Salinas calculation, which is a validated novel method providing better accuracy than the Friedewald equation in the estimation of LDL-C. William GAXIOLA et al. TYLER. 2013;310(19): 9823-3580 (http://Novopyxis.CRAZE/faq/WSL981) CHOL/HDLC RATIO 4.4 <5.0 (calc) NON HDL CHOLESTEROL 134 <130 mg/dL (calc) For patients with diabetes plus 1 major ASCVD risk factor, treating to a non-HDL-C goal of <100 mg/dL (LDL-C of <70 mg/dL) is considered a therapeutic option. COMPREHENSIVE METABOLIC PANSharona Polanco (22283) Reviewed date:04/07/2023 08:53:50 AM Interpretation: Performing Lab:NICKY, [facility] [address], [id number] Nikhil Mukherjee Notes/Report: NON-FASTING; NON-FASTING; NON-FASTING; NON-FASTING FASTING:YES FASTING: YES GLUCOSE 82 65-99 mg/dL Fasting reference interval UREA NITROGEN (BUN) 13 7-25 mg/dL CREATININE 1.03 0.70-1.35 mg/dL EGFR 82 > OR = 60 mL/min/1.73m2 BUN/CREATININE RATIO SEE NOTE: 6-22 (calc) Not Reported: BUN and Creatinine are within reference range. SODIUM 141 135-146 mmol/L POTASSIUM 4.4 3.5-5.3 mmol/L CHLORIDE 106 98-110 mmol/L CARBON DIOXIDE 28 20-32 mmol/L CALCIUM 8.8 8.6-10.3 mg/dL PROTEIN, TOTAL 6.5 6.1-8.1 g/dL ALBUMIN 4.2 3.6-5.1 g/dL GLOBULIN 2.3 1.9-3.7 g/dL (calc) ALBUMIN/GLOBULIN RATIO 1.8 1.0-2.5 (calc) BILIRUBIN, TOTAL 1.1 0.2-1.2 mg/dL ALKALINE PHOSPHATASE 91 35-144 U/L AST 20 10-35 U/L ALT 20 9-46 U/L CBC (INCLUDES DIFF/PLT) (639 9) Reviewed date:04/07/2023 08:53:50 AM Interpretation: Performing Lab:N[facility] [id number] [facility] CenterYljfSU[address] Nikhil Mukherjee Notes/Report: NON-FASTING; NON-FASTING; NON-FASTING; NON-FASTING FASTING:YES FASTING: YES WHITE BLOOD CELL COUNT 5.8 3.8-10.8 Thousand/ uL RED BLOOD CELL COUNT 5.29 4.20-5.80 Million/uL HEMOGLOBIN 16.0 13.2-17.1 g/dL HEMATOCRIT 47.2 38.5-50.0 % MCV 89.2 80.0-100.0 fL MCH 30.2 27.0-33.0 pg MCHC 33.9 32.0-36.0 g/dL RDW 12.2 11.0-15.0 % PLATELET COUNT 218 140-400 Thousand/uL MPV 10.2 7.5-12.5 fL ABSOLUTE NEUTROPHILS 2790 3021-2876 cells/uL ABSOLUTE LYMPHOCYTES 2059 850-3900 cells/uL ABSOLUTE MONOCYTES 522 200-950 cells/uL ABSOLUTE EOSINOPHILS 371 15-500 cells/uL ABSOLUTE BASOPHILS 58 0-200 cells/uL NEUTROPHILS 48.1 LYMPHOCYTES 35.5 MONOCYTES 9.0 EOSINOPHILS 6.4 BASOPHILS 1.0 PSA, TOTAL (5363) Reviewed date:04/07/2023 08:53:50 AM Interpretation: Performing Lab:NICKY [facility] [id number] [facility], [facility] ClinicQhsoSP[address] Nikhil Mukherjee Notes/Report: FASTING: YES FASTING:YES NON-FASTING; NON-FASTING; NON-FASTING; NON-FASTING PSA, TOTAL 1.68 < OR = 4.00 ng/mL The total PSA value from this assay system is standardized against the WHO standard. The test result will be approximately 20% lower when compared to the equimolar-standardized total PSA (Nelda Mallory). Comparison of serial PSA results should be interpreted with this fact in mind. This test was performed using the Siemens chemiluminescent method. Values obtained from different assay methods cannot be used interchangeably. PSA levels, regardless of value, should not be interpreted as absolute evidence of the presence or absence of disease. Rapid Covid/Flu A-B Combo Reviewed date:07/02/2023 11:01:37 AM Interpretation: Performing Lab: Notes/Report: Rapid Covid Positive Flu A Neg Flu B Neg REASON FOR REFERRAL Reason [facility] GI eval Diagnosis 1 Abdominal bloating ( R14.0) Referral Organization [facility] Referring Provider First Name Juan Referring Provider Last Name Isaiadelfo Referring Provider Speciality Internal edicine General Notes Carlee Luisanarashawn Bahena 09/2023 10:21:20 AM > faxed and they will call pt, Remedios Bejarano 11/08/2023 10:00:13 AM > pt informed Referral Priority Routine Reason [facility] ortho Diagnosis 1 Unspecified abdomina l pain (R10.9) Referral Organization [facility] Referring Provider First Name Juan Referring Provider Last Name Artem Referring Provider Speciality Internal edicine Referral Priority Routine MEDICATIONS Medication SIG (Take, Route, Frequency, Duration) Notes Start Date End Date Status Vitamin D 1000mg 1 tab orally twice a day for 30 days once a day Active Vitamin C 500 mg 1 tab(s) orally once a day for 30 day(s) Active Vitamin E 400 IU 1 tab QD Act esperanza Vitamin B12 500 mcg 1 tab(s) orally once a day for 30 day(s) Active Voquezna 20 mg 1 tab(s) orally once a day for 8 week(s) 11/04/2023 Active famotidine 40 mg 1 tab(s) orally once a day (at bedtime) for 90 days Active pravastatin 20MG 1 tab(s) orally once a day for 90 Active SOCIAL HISTORY Sex Assigned At : Social History Observation Description Sex Assigned At Unknown PROBLEMS Problem Type ICD Code Onset Dates Problem Status W/U Status Risk SNOMED Code Notes Problem Lumbago with sciatica, right side (M54.41) Active confirmed 165535989 Problem Tubular adenoma of colon (D12.6) Active confirmed 050679196 Problem Other chronic pain (G89.29) Active confirmed 25788352 Problem Right foot pain (M79.671) Active confirmed 374528383087878 Problem Bilateral chronic serous otitis media (H65.23) Active confirmed 750737009 Problem BMI 37.0-37.9, adult (Z68.37) Active confirmed 433734581 Problem Liver cyst (K76.89) Active confirmed 85 435201 Problem 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) Active confirmed 148153422 Problem BPH loc w/o ur obs/LUTS (N40.0) Active confirmed 221300100 Problem Hyperlipidemia, mixed (E78.2) Active confirmed 262170354 Problem 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) Active confirmed 886539224 Problem COVID-19 (U07.1) Active confirmed 60322 9006 Problem Gastroesophageal reflux disease with esophagitis without hemorrhage (K21.00) Active confirmed 691003859 Problem 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) Active confirmed 1429067574341400 Problem Cough (R05.9) Active confirmed Cough (4 0325729) VITAL SIGNS Heart Rate 74 /min 12/01/2023 Temperature 97.6 degrees Fahrenheit 12/01/2023 Oximetry 98% RA 07/02/2023 Blood pressure diastolic 80 mm Hg 12/01/2023 Height 68 in 12/01/2023 Blood pressure systolic 130 mm Hg 12/01/2023 Weight 244.8 lbs 12/01/2023 BMI 37.22 kg/m2 12/01/2023 Encounters Encounter Location Date Provider Diagnosis [place] [address] [address] 01/06/2023 May Aviles Encounter for CDL (commercial driving license) exam Z02.4 ; Hyperlipidemia, mixed E78.2 ; Other chronic postoperative pain G89.28 and Right foot pain M79.671 [facility] [address] [place] [address] 04/05/2023 May Aviles Hyperlipidemia, mixe d E78.2 ; BPH loc w/o ur obs/LUTS N40.0 and Gastroesophageal reflux disease with esophagitis without hemorrhage K21.00 [facility] [address] [place] [address] 07/02/2023 May Wright Cough R05.9 ; COVID- 19 U07.1 and Internal nasal lesion J34.[address] [place] [address] [address] 07/08/2023 Juanleslie Mcgill Subacute cough R05.[address] [place] [address] [address] 11/04/2023 Juan Besson Gastroesophageal ref lux disease with esophagitis without hemorrhage K21.00 ; Goodwin's cyst, left M71.22 and Abdominal bloating R14.0 [facility] [address] [place], [place] [address] 12/01/2023 Juan Mcgill Unspecified abdomina l pain R10.9 ; Other chronic pain G89.29 and Pain in left knee M25.562 [facility] [address] [place], [place] [address] 01/06/2023 May Aviles Mass of chest wall, right R22.2 [facility] [address] [facility] [place] [address] [place] [address] 03/25/2023 May Aviles ASSESSMENTS Encounter Date Diagnosis Assessment Notes Treatment Notes Treatment Clinical Notes 01/06/2023 Mass of chest wall, right (ICD-10 - R22.2) 04/05/2023 BPH loc w/o ur obs/LUTS (ICD-10 - N40.0) 04/05/2023 Hyperlipidemia, mixe d (ICD-10 - E78.2) Continue weight loss efforts, no medication changes recommended 07/02/2023 COVID-19 (ICD-10 - U07.1) Discussed importance of pulmonary toilet and hydration. Offered Paxlovid, but after discussing risks vs benefit, patient has elected to not take it. Advised on vitamin regimen. Discussed reasons to seek care in clinic or ED (worsening cough, shortness of breath, high fever not responding to treatment, inability to tolerate typical PO intake). Also recommended self-quarantine at home per CDC guidelines. Discussed the etiology & expected course of a viral URI and discussed the rationale for not prescribing antibiotics. Continue supportive care with PRN antipyretics, OTC cough/cold meds, nasal saline rinses/Neti pot with distilled water, salt water gargles, cough drops, and humidifier. Encourage PO hydration. Discussed the signs and symptoms of worsening condition and need for reassessment in clinic or ED. Keep previously scheduled physical exam or f/u sooner PRN. Patient voices understanding and is agreeable to this plan. 07/02/2023 Cough (ICD-10 - R05.9) 07/08/2023 Subacute cough (ICD-10 - R05.2) Discussed the etiology and expected course of a viral URI. Discussed supportive care and symptom management with PO fluids, Antipyretics, and antihistamines. Discussed the rational for not prescribing antibiotics for viral infection. Discussed the signs and symptoms of worsening condition and need for reassessment in clinic or ED. 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 01/06/2023 Hyperlipidemia, mixe d (ICD-10 - E78.2) 12/01/2023 Unspecified abdomina l pain (ICD-10 - R10.9) f/u with GI... re-eval after this event 12/01/2023 Other chronic pain (ICD-10 - G89.29) 11/04/2023 Gastroesophageal reflux disease with esophagitis without hemorrhage (ICD-10 - K21.00) Samples given of new agent, he will call me back and see how this goes given failure of PPI and H2 victorina 11/04/2023 Goodwin's cyst, left (ICD-10 - M71.22) Supportive care discussed, operative intervention criteria discussed. He will let me know 11/04/2023 Abdominal bloating (ICD-10 - R14.0) Trial to get second opinion from GI in another location given his bloating and persistent dyspepsia symptoms 01/06/2023 Other chronic postoperative pain (ICD-10 - G89.28) 12/01/2023 Pain in left knee (ICD-10 - M25.562) ortho eval... f/u post this 04/05/2023 Gastroesophageal reflux disease with esophagitis without hemorrhage (ICD-10 - K21.00) 07/02/2023 Internal nasal lesio n (ICD-10 - J34.89) Start topical treatment above. If no improvement in a week, should seek care. Discussed return precautions. 01/06/2023 Right foot pain (ICD-10 - M79.671) PLAN OF TREATMENT Pending Test Test Name Order Date MRI : Lumbosacral Spine 05/01/2021 Physical Therapy 05/08/2021 H-CBC with AUTO DIFF 09/02/2015 H-CMP 02/11/2017 H-CMP 09/02/2015 H-LIPID PANEL 09/02/2015 H-LIPID PANEL 02/11/2017 H-PSA SCREEN 09/02/2015 H-TSH 09/02/2015 C-CBC 01/08/2015 C-CMP 01/08/2015 C-LIPID PANEL 01/08/2015 C-TSH 01/08/2015 C-VITAMIN B12 01/08/2015 C-HGBA1C 01/08/2015 C-VITAMIN D, 25-HYDROXY 01/08/2015 M-Comprehensive Metabolic Panel 09/09/19 M-Lipid Panel 09/08/2018 M-Prostate Specific Ag Screen 09/23/2020 CT Scan : Chest wall, no contrast 2022 Insurance Providers Payer Name Payer Address Payer Phone Subscriber Number Group Number Insured Name Patient Relationship to Insured Coverage Start Date Coverage End Date [employer] [address] [place] [address] [id number] Thad Fontana Self - patient is the insured MEDICATIONS ADMINISTERED Medication Instructions Date of Administration Dosage Notes Dexamethasone 4mg Injection 02/17/2022 4 mg Triamcinolone Acetonide 40mg Injection 08/08/2019 1 mL Triamcinolone Acetonide 40mg Injection 10/16/2020 1 mL Kenalog 11/07/2015 1 MEDICAL (GENERAL) HISTORY Medical History History ICD Code acid reflux with esophagitis and duodeni tis torn achilles tendon (right) 2008 club foot at prostate issues Colonoscopy October 2015 with tubular ernesto joseph - repeat in 2020 cysts on Liver and kidney gallbladder Surgical History Surgery Date(Month/Year) 14 surgeries to correct right leg, club foot 1960 umbilical hernia repair, Dr Walsh 2014- colonosopy x 1 polyp 11/2015 Gallbladder 2021 Hospitalization History Reason Date(Month/Year) pneumonia as a child above surgeries
--- NOTE | 2023-12-09 12:52 | XR_ITS ---
FINAL REPORT CLINICAL HISTORY: lt knee pain FINDINGS: Left knee Three views were obtained. There is no acute fracture or dislocation. The joint spaces appear normal. No soft tissue abnormality is identified. IMPRESSION: No acute process. Reviewed, Interpreted and Dictated by Ezequiel Oliver III, MD Transcribed by Beatrice Snowden Authenticated and [facility]
== END 2023-12-09 23:59 | disposition home or self-care (01) ==
LOC: RAD 12:35
PROVIDERS: PCP Internal Medicine Adolescent Medicine; Visit Provider Physician Assistant Surgical
DX: M25.562 Pain in left knee (principal)
CPT/HCPCS: 73562

== ENCOUNTER → 2024-03-31 06:11 | Outpatient (CLI) | payer OTHER, SELFPAY | LOC: SL 06:12 | PROVIDERS: PCP Internal Medicine Adolescent Medicine; Visit Provider Internal Medicine Adolescent Medicine | DX: G47.33 Obstructive sleep apnea (adult) (pediatric) (principal); G47.36 Sleep related hypoventilation in conditions classified elsewhere | CPT/HCPCS: G0399 ==

== ENCOUNTER 2025-03-19 10:26 | Outpatient (CLI) | payer OTHER, SELFPAY ==
--- OUTSIDE RECORDS SUMMARY | 2024-10-07 17:30 | XMS_ITS ---
Author Organization [facility] Address [address] [place] [address] Care Team Providers Care Cable Rigger Name Role Phone Juan Mcgill Primary Care Provider Juan Mcgill Unavailable Unavailable Migration, Provider Unavailable Unavailable Allergies Allergen (clinical drug ingredient) Drug/Non Drug Allergy documented on EMR Reaction Allergy Type Onset Date Status EPIDURAL INJECTIONS (uncoded) Unknown Allergy Active [facility] Conversion Encounter Medications Medication SIG (Take, Route, Frequency, Duration) Notes Start Date End Date Status rOPINIRole HCl 1 MG 1 tab(s) orally at bedtime; Duration: 90 days prn 03/03/2024 Active Vitamin D 1000MG 1 TAB ORALLY TWICE A DAY; Duration: 30 DAYS once a day *Please review and pick correct strength-formulatio n from [employer] options. If intended option is not shown, discontinue and re-order from Quick Search* Active Pravastatin Sodium 20 MG 1 tab(s) orally once a day; Duration: 90 Active Vitamin E 400 IU 1 TAB QD *Please review and pick correct strength-formulatio n from [employer] options. If intended option is not shown, [...] Active Encounters Encounter Location Date Provider Diagnosis [facility] [address] [facility] [address] [place] [address] 10/07/2024 Provider Migration Plan Of Treatment No Information Progress Notes * Thad HDEZDOB:1960 (64 yo M)Acc No.[id number]:10/07/2024 Patient: Thad CUNNINGHAM Provider: Karlie floyd Migration :1960 A ge:64 Y S ex:Male Date:10/07/2024 Address:[address] [place], [place] [address], [id number] Pcp:Juan Mcgill Subjective: * Chief Complaints: * [...] *Please review and pick correct strength-formulation from [employer] options. If intended option is not shown, discontinue and re-order from Quick Search*, Taking Vitamin C 500 MG Tablet 1 tab(s) orally once a day , Taking Vitamin D 1000MG 1 TAB ORALLY TWICE A DAY , Notes to Pharmacist: once a day *Please review and pick correct strength-formulation from [employer] options. If intended option is not shown, [...] Electronic signature of Prov ider Migration on 03/19/2025 at 10:32 AM EDT Sign off status: Pending * Provider: Karlie floyd Migration Date: 0 10/07/2024 Generated for Janelle vital/Kee/Jessicaitting on: 0 03/19/2025 10:32 AM EDT
--- OUTSIDE RECORDS SUMMARY | 2025-02-22 10:30 | XMS_ITS ---
Author Organization [facility] Address [address] [place] [address] Care Team Providers Care Class C Driver Name Role Phone Juan Mcgill Primary Care Provider Juan Mcgill Unavailable Unavailable May Aviles Unavailable [phone] Allergies Allergen (clinical drug ingredient) Drug/Non Drug Allergy documented on EMR Reaction Allergy Type Onset Date Status EPIDURAL INJECTIONS (uncoded) Unknown Allergy Active Results Component Value Reference Range Notes Urinalysis Reviewed date:02/23/2025 04:54:49 PM Interpretation: Performing Lab: Notes/Report: Color/Clarity yellow Leuk neg Nitrite neg Urobili 1.0 Protein neg pH 6.5 Blood neg Sp. Gr. 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 If intended option is not shown, discontinue and re-order from Quick Search* Active Pravastatin Sodium 20 MG 1 tab(s) orally once a day; Duration: 90 Active Vitamin C 500 MG 1 tab(s) orally once a day; Duration: 30 day(s) Active Vitamin E 400 IU 1 TAB QD *Please review and pick correct strength-formulatio n from Medispan options. If intended option is not shown, discontinue and re-order from Quick Search* Active Meloxicam 7.5 MG 1 tab(s) orally once a day prn Active Vitamin B 12 500 MCG 1 tab(s) orally once a day; Duration: 30 day(s) Active Fish Oil 300 MG 1 capsule Orally Three times a day Active Vital Signs Temperature 97.5 degrees Fahrenheit 02/23/20 25 Oximetry 76 02/22/2025 Blood pressure systolic 122 mm Hg 02/23/20 25 Blood pressure diastolic 84 mm Hg 025 Height 68 in 02/22/2025 Weight 254 lbs 02/22/2025 BMI 38.62 kg/m2 02/22/2025 Encounters Encounter Location Date Provider Diagnosis [facility] [address] [place] [address] 02/22/2025 May Aviles 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 02/22/2025 Hyperlipidemia , mixed (ICD-10 - E78.2) 02/22/2025 DWIGHT (obstructive sleep apnea) (ICD-10 - G47.33) 02/22/2025 BMI 38.0-38.9,adul t (ICD-10 - Z68.38) weight loss encouraged Plan Of Treatment Next Appt Details Follow Up: prn, Reason: Procedure Notes * Category Sub-Category Detail Notes Vision Screen Right 20/20 Left 20/20 Both 20/20, color vision normal, Snellen chart used Progress Notes * Thad HDEZDOB:1960 (64 yo M)Acc No.[id number]:02/22/2025 Progress Notes Patient: Thad CUNNINGHAM Provider: NADINE Munroe :1960 A ge:64 Y S ex:Male Date:02/22/2025 Address:[facility] [address] [place], [id number] Pcp:Juan Mcgill Subjective: * Chief Complaints: * 1 . CDL. * HPI: g en: 64 year old male presents today for a CDL physical exam. Denies acute concerns. 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 Desires to keep his certification in case this is needed for short trips in the future Chronic conditions include HLD on statin therapy, chronic right foot pain/immobility secondary to club foot and surgeries, chronic GERD. No new health concerns over the past 1-2 years. No controlled substances or mental health diagnoses. No cardiac or neurologic history other than HLD He does follow with podiatry as needed, injections are helpful for 2-3 months. Recent EMG/NVC did not indicate any nerve involvement previously. * ROS: s ee forms on file. * Medical History: A ankita reflux with esophagitis and duodenitis, Torn achilles tendon (right) 2008, Club foot at , Prostate issues, Colonoscopy October 2015 with tubular adenoma - repeat in 2020, cysts on Liver and kidney, Gallbladder, DWIGHT, moderate, HST 04/2024. * Surgical History: 1 4 surgeries to correct right leg, club foot 1960, umbilical hernia repair, Dr Walsh 12/2014-, colonosopy x 1 polyp 11/2015, Gallbladder 2021. * Hospitalization/Major Diagno stic Procedure: a luis surgeries , pneumonia as a child . * Family History: F ather: alive, colon ca, HLD, diagnosed with Cancer, Diabetes. M other: alive, breast ca,, diagnosed with Cancer. P aternal Grand Father: , family history unknown . P aternal Grand Mother: , family history unknown . M aternal Grand Father: , family history unknown . M aternal Grand Mother: , breast ca, diagnosed with Cancer. P aternal uncle: alive, brain ca, esophagus ca. P aternal aunt: alive, diagnosed with Cancer. M aternal uncle: alive. M aternal aunt: alive. S iblings: alive, fqerayw-ygcvpwtr-ljebplffs of liver. C lien: alive. 2 brother(s) . 2 son(s) - healthy. . * Social History: S moking A re you a:: former smoker , How long has it been since you last smoked?: > 10 years. R ecreational drug use: no. Exercise: no. Home smoke detector use: yes. Caffeine: yes, 1 soda daily. Living Will: No. Alcohol: socially, occasional beer. Sexually active: yes. Travel outside [place]: no. 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 * Medications: T aking Fish Oil 300 MG Capsule 1 capsule Orally Three times a day , Taking Meloxicam 7.5 MG Tablet 1 tab(s) orally once a day , Notes to Pharmacist: prn, Taking Vitamin B 12 500 MCG Tablet 1 tab(s) orally once a day , Taking Vitamin E 400 IU 1 TAB QD , Notes to Pharmacist: *Please review and pick correct strength-formulation from [employer]phant[employer] options. If intended option is not shown, discontinue and re-order from Quick Search*, Taking Vitamin C 500 MG Tablet 1 tab(s) orally once a day , Taking Vitamin D 1000MG 1 TAB ORALLY daily , Notes to Pharmacist: once a day *Please review and pick correct strength-formulation from [employer]phant[employer] options. If intended option is not shown, discontinue and re-order from Quick Search*, Taking Pravastatin Sodium 20 MG Tablet 1 tab(s) orally once a day , Taking Voquezna 20 MG Tablet 1 tab(s) orally once a day , Discontinued Zepbound 2.5 MG/0.5ML Solution Auto-injector 0.5 mL Subcutaneous once a week , Medication List reviewed and reconciled with the patient * Allergies: E PIDURAL INJECTIONS. Objective: * Vitals: N urse: be, Pain: 0, Temp: 97.5, Pulse O2: 76, RR: 16, BP: 122/84, Ht: 68, Wt: 254, BMI:38.62. * Examination: G eneral Examination: General P leasant and Cooperative, NAD on RA,. Oral cavity: n o lesions, OMMP. Chest: n ormal shape and expansion. Heart: R RR, No m/r/g/h, Nl S1S2, No JVD, 2(+) symmetric pulses, No edema,. HEENT: p harynx and tonsils normal, EACs/TMs normal, EOMI.? Lungs: L CTAB, No wheezes, crackles or rhonchi, Good air movement,. Abdomen: S oft, NTND, BSNA, No organomegaly or peritoneal signs. Midline abd scar. Neurologic Exam: n o focal signs,, Alert and oriented x 3, Negative rhomberg's testing,. Skin: w ithout acute rashes. Peripheral pulses: n ormal (2+) bilaterally. Back: F ROM, soft tissue density left upper back. Extremities: no clubbing, no edema, chronic changes right foot/ankle. Genitalia: no hernias. neck supple,, no thyromegaly,, no lymphadenopathy,, No Carotid Bruit,. Psych N ormal Mood/Affect. Assessment: * Assessment: 1. E ncounter for CDL (commercial driving license) exam - Z02.4 (Primary) 2 .?Hyperlipidemia, mixed - E78.2 3 . O SA (obstructive sleep apnea) - G47.33? 4. B [place] 38.0-38.9,adult - Z68.38 Plan: * Treatment: Value Reference Range C olor/Clarity yellow * L euk neg * N itrite neg * U robili 1.0 * P rotein neg * p H 6.5 * B lood neg * S p. Gr. 1.020 * K etone neg * B link neg * G lucose neg * Faby Sullivan 02/23/20 03:06:35 PM EDT > Clinical Notes: 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 ??2.?BMI 38.0-38.9,adult? Clinical Notes: weight loss encouraged?? * Procedures: V ision Screen: Right 2 020. L eft 2 0/20. B oth 2 0/20, color vision normal, Snellen chart used. * Procedure Codes: 8 1002 URINALYSIS, Modifiers: QW , 14977 CDL PHYSICAL * Follow Up: p rn * * Sign off status: Completed true * Provider: NADINE Munroe Date: 0 02/22/2025 Generated for Janelle vital/Kee/eTransmitting on: 0 03/19/2025 10:31 AM EDT History and Physical Notes * Examination Category Sub-Category Detail Notes Category Not es General Examination HEENT: pharynx and tonsils normal, EACs/TMs normal, EOMI Heart: RRR, No m/r/g/h, Nl S1S2, No JVD, 2(+) symmetric pulses, No edema, Lungs: LCTAB, No wheezes, c rackles or rhonchi, Good air movement, Abdomen: Soft, NTND, BSNA, No organomegaly or peritoneal signs. Midline abd scar Extremities: no clubbing, no avi a, chronic changes right foot/ankle Skin: without acute rashes Neurologic Exam: no focal signs,, Leandra rt and oriented x 3, Negative rhomberg's testing, Oral cavity: no lesions, OMMP Peripheral pulses: normal (2+) bilatera lly Back: FROM, soft tissue de nsity left upper back Genitalia: no hernias Chest: normal shape and exp ansion neck supple,, no thyromeg katherine,, no lymphadenopathy,, No Carotid Bruit, General Pleasant and Coopera tive, NAD on RA, Psych Normal Mood/Affect
--- OUTSIDE RECORDS SUMMARY | 2025-02-27 11:42 | XMS_ITS ---
Author Organization [facility] Address [address] [place], [place] [address] Care Team Providers Care Certified Medication Technician Name Role Phone Juan Mcgill Primary Care Provider Juan Mcgill Unavailable Unavailable May Aviles Unavailable [phone] REASON FOR VISIT CTA Denial Encounters Encounter Location Date Provider Diagnosis [facility] [address] [place], [place] [address] 02/27/2025 May Aviles Family history of aortic aneurysm Z82.49 Assessments Encounter Date Diagnosis (ICD Code) Assessment Notes Treatment Notes Treatment Clinical Notes Section Notes 02/27/2025 Family history of aortic aneurysm (ICD-10 - Z82.49) Plan Of Treatment Pending Test Test Name Order Date Ultrasound : Aorta 02/27/2025 Progress Notes * Thad HDEZDOB:1960 (64 yo M)Acc No.[id number]:02/27/2025 Patient: Thad CUNNINGHAM :1960 A ge:64 Y S ex:Male Address:[place], [address] Subjective: * Chief Complaints: * C TA Denial * Medical History: * Surgical History: * Hospitalization/Major Diagno stic Procedure: * Medications: Objective: * Vitals: * Physical Examination: Assessment: * Assessment: 1. F amily history of aortic aneurysm - Z82.49 Plan: * Treatment: * * Procedure Codes: * true * Date: Generated for Janelle vital/Kee/Harrison on: 0 03/19/2025 10:32 AM EDT
--- NOTE | 2025-03-19 10:27 | US_ITS ---
FINAL REPORT CLINICAL HISTORY: AORTIC ANEURYSM FINDINGS: ULTRASOUND ABDOMINAL AORTA Findings: Sagittal and transverse images with Doppler exam was performed of the aorta. There is no evidence of abdominal aortic aneurysm. Aorta measures up to 2.2 cm. Mild plaque disease is noted. Proximal iliac vessels are normal in caliber. Aorta is patent by Doppler exam without gross stenosis. IMPRESSION: No evidence of aortic aneurysm Reviewed, Interpreted and Dictated by Jason Moya MD Transcribed by Glo Ruiz Authenticated and [facility]
--- OUTSIDE RECORDS SUMMARY | 2025-03-19 10:32 | XMS_ITS | Patient Health Record ---
Author Organization [facility] Address [address] [place] [address] Care Team Providers Care Business Specialist Name Role Phone Juan Mcgill Primary Care Provider Juan Mcgill Unavailable Unavailable May Aviles Unavailable [phone] Migration, Provider Unavailable Unavailable Allergies Allergen (clinical [...] 1.020 Ketone neg Bili neg Glucose neg LIPID PANEL, STANDARD (7600) Reviewed date:09/20/2024 07:59:24 AM Interpretation: Performing Lab:CB, [facility] Csva0030 [facility], [facility] HospitalCpbuQD[address] Nikhil Mukherjee Notes/Report: NON-FASTING NON-FASTING NON-FASTING NON-FASTING NON-FASTING NON-FASTING CHOLESTEROL, TOTAL 202 <200 mg/dL HDL CHOLESTEROL 33 > OR = 40 mg/dL TRIGLYCERIDES 522 <150 mg/dL If a non-fasting specimen was collected, consider repeat triglyceride testing on a fasting specimen if clinically indicated. Alejandrina et al. J. of Clin. Lipidol. 2015;9:129-169. There is increased risk of pancreatitis when the triglyceride concentration is very high (> or = 500 mg/dL, especially if > or = 1000 mg/dL). Alejandrina et al. J. of Clin. Lipidol. 2015;9:129-169. LDL-CHOLESTEROL LDL cholesterol not calculated. Triglyceride levels greater than 400 mg/dL invalidate calculated LDL results. Reference range: <100 Desirable range <100 mg/dL for primary prevention; <70 mg/dL for patients with CHD or diabetic patients with > or = 2 CHD risk factors. LDL-C is now calculated using the William-Smith calculation, which is a validated novel method providing better accuracy than the Friedewald equation in the estimation of LDL-C. William SS et al. TYLER. 2013;310(19): 7576-2884 (http://aXess america.Techulon/faq/AFD429) CHOL/HDLC RATIO 6.1 <5.0 (calc) NON HDL CHOLESTEROL 169 <130 mg/dL (calc) For patients with diabetes plus 1 major ASCVD risk factor, treating to a non-HDL-C goal of <100 mg/dL (LDL-C of <70 mg/dL) is considered a therapeutic option. COMPREHENSIVE METABOLIC AB Polanco (44753) Reviewed date:09/20/2024 07:59:24 AM Interpretation: Performing Lab:NICKY, [facility] [place] [facility] HospitalFox Beach[address] Nikhil Mukherjee Notes/Report: NON-FASTING NON-FASTING NON-FASTING NON-FASTING NON-FASTING NON-FASTING GLUCOSE 146 65-99 mg/dL Fasting reference interval For someone without known diabetes, a glucose value >125 mg/dL indicates that they may have diabetes and this should be confirmed with a follow-up test. UREA NITROGEN (BUN) 14 7-25 mg/dL CREATININE 1.02 0.70-1.35 mg/dL EGFR 82 > OR = 60 mL/min/1.73m2 BUN/CREATININE RATIO SEE NOTE: 6-22 (calc) Not Reported: BUN and Creatinine are within reference range. SODIUM 139 135-146 mmol/L POTASSIUM 3.9 3.5-5.3 mmol/L CHLORIDE 104 98-110 mmol/L CARBON DIOXIDE 21 20-32 mmol/L CALCIUM 9.3 8.6-10.3 mg/dL PROTEIN, TOTAL 6.6 6.1-8.1 g/dL ALBUMIN 4.3 3.6-5.1 g/dL GLOBULIN 2.3 1.9-3.7 g/dL (calc) ALBUMIN/GLOBULIN RATIO 1.9 1.0-2.5 (calc) BILIRUBIN, TOTAL 0.7 0.2-1.2 mg/dL ALKALINE PHOSPHATASE 96 35-144 U/L AST 21 10-35 U/L ALT 22 9-46 U/L CBC (INCLUDES DIFF/PLT) (639 9) Reviewed date:09/20/2024 07:59:24 AM Interpretation: Performing Lab:CB, [facility] [address], [place] Nikhil Mukherjee Notes/Report: NON-FASTING NON-FASTING NON-FASTING NON-FASTING NON-FASTING NON-FASTING WHITE BLOOD CELL COUNT 7.5 3.8-10.8 Thousand/ uL RED BLOOD CELL COUNT 5.48 4.20-5.80 Million/uL HEMOGLOBIN 16.4 13.2-17.1 g/dL HEMATOCRIT 48.2 38.5-50.0 % MCV 88.0 80.0-100.0 fL MCH 29.9 27.0-33.0 pg MCHC 34.0 32.0-36.0 g/dL For adults, a slight decrease in the calculated MCHC value (in the range of 30 to 32 g/dL) is most likely not clinically significant; however, it should be interpreted with caution in correlation with other red cell parameters and the patient's clinical condition. RDW 12.8 11.0-15.0 % PLATELET COUNT 278 140-400 Thousand/uL MPV 11.3 7.5-12.5 fL ABSOLUTE NEUTROPHILS 4808 9712-3337 cells/uL ABSOLUTE LYMPHOCYTES 4309 875-0547 cells/uL ABSOLUTE MONOCYTES 480 200-950 cells/uL ABSOLUTE EOSINOPHILS 233 15-500 cells/uL ABSOLUTE BASOPHILS 83 0-200 cells/uL NEUTROPHILS 64.1 LYMPHOCYTES 25.3 MONOCYTES 6.4 EOSINOPHILS 3.1 BASOPHILS 1.1 HEMOGLOBIN A1c (496) Reviewed date:09/20/2024 07:59:24 AM Interpretation: Performing Lab:NICKY, [facility] [address], [place] MedicalAoabWW[address] Nikhil Mukherjee Notes/Report: NON-FASTING NON-FASTING NON-FASTING NON-FASTING NON-FASTING NON-FASTING HEMOGLOBIN A1c 5.2 <5.7 % of total Hgb For the purpose of screening for the presence of diabetes: <5.7% Consistent with the absence of diabetes 5.7-6.4% Consistent with increased risk for diabetes (prediabetes) > or =6.5% Consistent with diabetes This assay result is consistent with a decreased risk of diabetes. Currently, no consensus exists regarding use of hemoglobin A1c for diagnosis of diabetes in children. According to [place] Diabetes Association (ADA) guidelines, hemoglobin A1c <7.0% represents optimal control in non- diabetic patients. Different metrics may apply to specific patient populations. Standards of Medical Care in Diabetes(ADA). VITAMIN B12/FOLATE, SERUM PA DANIEL (7065) Reviewed date:09/20/2024 07:59:24 AM Interpretation: Performing Lab:NICKY [facility] [id number] [facility]for[facility]eteV[facility], Bet[facility] HospitalCiqxCZ[address] Nikhil Mukherjee Notes/Report: NON-FASTING NON-FASTING NON-FASTING NON-FASTING NON-FASTING NON-FASTING VITAMIN B12 361 761-7819 pg/mL FOLATE, SERUM 13.7 Reference Range Low: <3.4 Borderline: 3.4-5.4 Normal: >5.4 PSA, TOTAL (5363) Reviewed date:09/20/2024 07:59:24 AM Interpretation: Performing Lab:NICKY [facility] Rwuo8635 [facility] Hospitalte[facility], Bethes[facility] HospitalIfkwUT[address] Nikhil Mukherjee Notes/Report: NON-FASTING NON-FASTING NON-FASTING NON-FASTING NON-FASTING NON-FASTING PSA, TOTAL 0.82 < OR = 4.00 ng/mL The total PSA value from this assay system is standardized against the WHO standard. The test result will be approximately 20% lower when compared to the equimolar-standardized total PSA ([place]). Comparison of serial PSA results should be interpreted with this fact in mind. This test was performed using the Siemens chemiluminescent method. Values obtained from different assay methods cannot be used interchangeably. PSA levels, regardless of value, should not be interpreted as absolute evidence of the presence or absence of disease. Rapid Covid/Flu A-B Combo Reviewed date:06/21/2024 08:58:30 PM Interpretation: Performing Lab: Notes/Report: Rapid Covid neg Flu A neg Flu B neg Rapid Covid/Flu A-B Combo Reviewed date:07/10/2024 02:51:28 PM Interpretation: Performing Lab: Notes/Report: Rapid Covid negative Flu A positive Flu B negative TESTOSTERONE, [place], [place] (159 83) Reviewed date:09/25/2024 02:48:07 PM Interpretation: Performing Lab:Z3Sharona, [facility]LkcPmtaxz7[address] [facility] [address], [address], [place] Nely Villegas MD,PhD Notes/Report: NON-FASTING TESTOSTERONE, [place], [place] [address] ng/dL For additional information, please refer to [email or web address] america.Guía Local/faq/TotalTest osteroneLCMSMS (This link is being provided for informational/educational purposes only.) (Note) This test was developed and its analytical performance characteristics have been determined by [employer]. It has not been cleared or approved by the FDA. This assay has been validated pursuant to the CLIA regulations and is used for clinical purposes. [facility] [address] [address],[address] [facility] [address] Nely Villegas MD, PhD Reason For Referral Reason medical records for disability determination Referral Organization [facility] KENDRA STONER Referring Provider First Name Juan Referring Provider Last Name Artem Referring Provider Speciality Internal M edicine Referral Priority Routine Reason Needs echo and CTA c hest to screen for thoracic aortic aneurysm Diagnosis 1 FH: aneurysm (Z82.49 ) Referral Organization [facility] KENDRA DAVIS Referring Provider First Name May Referring Provider Last Name Traci Referring Provider Speciality Family Pra ctice Referred Organization [facility] Referred Address [address] [place] [address], Referred Provider Specialty Diagnostic R adiology General Notes Connie Kay 2024 10:02:23 AM >pending precert for echo and ccta with RadRahul DORADO Nickie 02/27/2025 03:41:13 PM >deniedRahul Nickie 02/27/2025 03:47:37 PM > Referral Priority Routine Reason Cpap Referral Organization [facility] KENDRA DAVIS Referring Provider First Name May Referring Provider Last Name Traci Referring Provider Speciality Family Pra ctice Referred Organization [facility] Referred Address [address] [place], [place],[address] Referred Provider Specialty DME General Notes Connie Kay 2024 10:32:50 AM >sent to [facility] Priority Routine Medications Medication SIG (Take, Route, Frequency, Duration) Notes Start Date End Date Status Voquezna 20 MG 1 tab(s) orally once a day; Duration: 90 days 11/04/2023 Active Vitamin D 1000MG 1 TAB ORALLY daily; Duration: 30 days once a day *Please review and pick correct strength-formulatio n from Kingmaker options. If intended option is not shown, discontinue and re-order from Quick Search* Active Vitamin E 400 IU 1 TAB QD *Please review and pick correct strength-formulatio n from Kingmaker options. If intended option is not shown, discontinue and re-order from Quick Search* Active Pravastatin Sodium 20 MG 1 tab(s) orally once a day; Duration: 90 days Active Vitamin C 500 MG 1 tab(s) orally once a day; Duration: 30 day(s) Active Meloxicam 7.5 MG 1 tab(s) orally once a day prn Active Vitamin B 12 500 MCG 1 tab(s) orally once a day; Duration: 30 day(s) Active Fish Oil 300 MG 1 capsule Orally Three times a day Active Problems Problem Type SNOMED Code ICD Code Onset Dates Problem Status W/U Status Risk Notes Problem Sciatica (08105009) Lumbago with sciatica, right side (M54.41) Active confirmed Problem Tubular adenoma of colon (018355837) Tubular adenoma of colon (D12.6) Active confirmed Problem Chronic pain (44993065) Other chronic pain (G89.29) Active confirmed Problem Obese class II (580108156464835) BMI 39.0-39.9,adult (Z68.39) Active confirmed Problem Obese class II (578540379603089) BMI 38.0-38.9,adult (Z68.38) Active confirmed Problem Pain in right foot (637734461228275) Right foot pain (M79.671) Active confirmed Problem Chronic serous otitis media (51282639) Bilateral chronic serous otitis media (H65.23) Active confirmed Problem Obese class II (936250340550072) BMI 37.0-37.9, adult (Z68.37) Active confirmed Problem Obstructive sleep apnea syndrome (91095145) DWIGHT (obstructive sleep apnea) (G47.33) Active confirmed Problem Liver cyst (81992916) Liver cyst (K76.89) Active confirmed Problem 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) Active confirmed Problem Restless legs (24810150) Restless leg (G25.81) Active confirmed Problem Benign prostatic hypertrophy without outflow obstruction (020150369) BPH loc w/o ur obs/LUTS (N40.0) Active confirmed Problem Mixed hyperlipidemia (517843794) Hyperlipidemia, mixed (E78.2) Active confirmed Problem Chronic postoperative pain (410680837459310) 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) Active confirmed Problem COVID-19 (555542205) COVID-19 (U07.1) Active confirmed Problem Gastroesophageal reflux disease with esophagitis (disorder) (309191428) Gastroesophageal reflux disease with esophagitis without hemorrhage (K21.00) Active confirmed Problem Localized, primary osteoarthritis of the ankle and/or foot (573790868) 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) Active confirmed Problem Cough (10439208) Cough (R05.9) Active confirmed Vital Signs Heart Rate 76 /min 01/11/2025 Temperature 97.5 degrees Fahrenheit 02/22/2025 Oximetry 76 02/22/2025 Blood pressure diastolic 84 mm Hg 02/22/2025 Height 68 in 02/22/2025 Blood pressure systolic 122 mm Hg 02/22/2025 Weight 254 lbs 02/22/2025 BMI 38.62 kg/m2 02/22/2025 Encounters Encounter Location Date Provider Diagnosis [facility] [address] [place] [address] 10/07/2024 Provider Migration [facility] [address] [place] [address] 05/18/2024 Juan Mcgill Moderate obstructive sleep apnea G47.33 [facility] [address] [place] [address] 06/05/2024 May Aviles Acute non-recurrent sinusitis of other sinus J01.80 ; BMI 38.0-38.9,adult Z68.38 and Weight loss counseling, encounter for Z71.3 [facility] [address] [facility] [address] [place] [address] 06/21/2024 Juan Mcgill Body aches R52 and V iral gastroenteritis A08.4 [facility] [address] [facility] [address] [place] [address] 07/10/2024 Juan Mcgill Acute febrile illnes s R50.9 ; Influenza A J10.1 and Acute cough R05.1 [facility] [address] [facility] [address] [place] [address] 07/19/2024 Juan Mcgill Cough R05.9 [facility] [address] [facility] [address] [place] [address] 09/18/2024 Juan Mcgill Hyperlipidemia, mixe d E78.2 ; Other malaise R53.81 ; Other fatigue R53.83 ; BPH loc w/o ur obs/LUTS N40.0 ; Family history of diabetes mellitus Z83.3 and Lipoma of left upper extremity D17.22 [facility] [address] [facility] [address] [place] [address] 01/11/2025 May Aviles Dysfunction of left eustachian tube H69.92 ; Intermittent vertigo R42 ; BMI 39.0-39.9,adult Z68.39 and DWIGHT (obstructive sleep apnea) G47.33 [facility] [address] [facility] [address] [place] [address] 02/22/2025 May Aviles Encounter for CDL (commercial driving license) exam Z02.4 ; Hyperlipidemia, mixed E78.2 ; DWIGHT (obstructive sleep apnea) G47.33 and BMI 38.0-38.9,adult Z68.38 [facility] [place] [address] [address] 07/08/2024 Juan Besson [facility] [address] [facility] [address] [place] [address] 10/02/2024 Juan Besson [facility] [place] [address] [address] 10/23/2024 Juan Isaiadelfo Gastroesophageal ref lux disease with esophagitis without hemorrhage K21.00 [facility] [address] [place] [address] 01/13/2025 Mayvishal MarieTraci [facility] [address] [place] [address] 02/08/2025 May Traci [facility] [address] [place] [address] 02/23/2025 May Traci [facility] [address] [place] [address] 02/27/2025 Juan Mcgill [facility] [address] [place] [address] 02/27/2025 May Aviles Family history of ao rtic aneurysm Z82.49 [facility] [address] [place] [address] 08/10/2024 May Traci [facility] [address] [place] [address] 08/14/2024 May Marieence [facility] [address] [place] [address] 09/19/2024 Juan Mcgill [facility] [address] [place] [address] 09/20/2024 Juan Artem Assessments Encounter Date Diagnosis (ICD Code) Assessment Notes Treatment Notes Treatment Clinical Notes Section Notes 05/18/2024 Moderate obstructive sleep apnea (ICD-10 - G47.33) Discussed sleep apnea options. Discussed CPAP versus trial of some mouthpieces versus referral to a sleep specialist. He would like to try mouthpieces at this point. I gave him a variety of websites and resources. He will let me know how this goes. 06/05/2024 BMI 38.0-38.9,adult (ICD-10 - Z68.38) 06/05/2024 Acute non-recurrent sinusitis of other sinus (ICD-10 - J01.80) 06/21/2024 Viral gastroenteritis (ICD-10 - A08.4) Suspect viral etiology of patient's GI symptoms given time course of sxs and improvement, recent abx treatment, lack of red flag sxs. Will treat supportively with Pepto Bismol, Align probiotic and patient will RTC next week if sxs have not resolved. Counseled on proper PO intake including electrolyte water, food as tolerated. 06/21/2024 Body aches (ICD-10 - R52) 07/10/2024 Influenza A (ICD-10 - J10.1) Discussed the etiology and expected course of influenza. Discussed the decision to treatment versus nontreatment with Tamiflu as noted above. Discussed the expectations and limitations of Tamiflu as an antiviral. Discussed supportive care with antipyretics, antiemetics, antitussives, and oral hydration. Stressed the importance of oral hydration. Discussed signs and symptoms of worsening condition, especially difficulty breathing, or changes in mental status and need for reassessment in clinic or ED. 07/10/2024 Acute febrile illness (ICD-10 - R50.9) COVID and flu testing were ordered by me because of community exposure. I interpreted these test also, increasing the complexity of the visit. Please note we also spent some time discussing hydration status and strategies 07/19/2024 Cough (ICD-10 - R05.9) Persistent cough following influenza infection that has not resolved. There is wheezing in the left lower lung on exam. I have low suspicion for bronchitis or pneumonia as the patient is not having systemic symptoms. Patient will receive dexamethasone injection in office. If this does not resolve patient's cough and wheezing, the patient is welcome to contact the office and be re-evaluated. 09/18/2024 Other malaise (ICD-10 - R53.81) 09/18/2024 Hyperlipidemia, mixed (ICD-10 - E78.2) 10/23/2024 Gastroesophageal reflux disease with esophagitis without hemorrhage (ICD-10 - K21.00) 01/11/2025 Intermittent vertigo (ICD-10 - R42) 01/11/2025 Dysfunction of left eustachian tube (ICD-10 - H69.92) symptoms are better at time of exam, no vertigo and only intermittent ear symptoms. suspect eustachian tube dysfunction. rec use of flonase and cetirizine OTC routinely for a couple of weeks and then PRN. 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 02/22/2025 Hyperlipidemia, mixed (ICD-10 - E78.2) 02/27/2025 Family history of aortic aneurysm (ICD-10 - Z82.49) 01/11/2025 BMI 39.0-39.9,adult (ICD-10 - Z68.39) 09/18/2024 Other fatigue (ICD-10 - R53.83) Recently diagnosed w sleep apnea and CPAP ordered, ongoing fatigue. Will check labs today. 07/10/2024 Acute cough (ICD-10 - R05.1) Cough suppressant/hope fully treat with nausea with the dextromethorphan /Phenergan 06/05/2024 Weight loss counseling, encounter for (ICD-10 - Z71.3) Reviewed indication for medication and that dietary changes as well as exercise are recommended as well. Small, frequent meals recommended. Possible side effects and return precautions reviewed. Goal is 4% weight loss over the first 4 months. Discussed that MOA may exacerbate some of his chronic GI symptoms and will have to follow very closely 02/22/2025 DWIGHT (obstructive sleep apnea) (ICD-10 - G47.33) 09/18/2024 BPH loc w/o ur obs/LUTS (ICD-10 - N40.0) 01/11/2025 DWIGHT (obstructive sleep apnea) (ICD-10 - G47.33) will investigate coverage of Zepbound due to his concurrent DWIGHT. Already exercising as able on his exercise bike 02/22/2025 BMI 38.0-38.9,adult (ICD-10 - Z68.38) weight loss encouraged 09/18/2024 Family history of diabetes mellitus (ICD-10 - Z83.3) 09/18/2024 Lipoma of left upper extremity (ICD-10 - D17.22) lipoma vs skin nodule. Can continue to monitor and RTC if rapid growth, pain or erythema develope. Plan Of Treatment Pending Test Test Name Order Date MRI : Lumbosacral Spine 05/01/2021 Physical Therapy 05/08/2021 H-CBC with AUTO DIFF 09/02/2015 H-CMP 09/02/2015 H-CMP 02/11/2017 H-LIPID PANEL 02/11/2017 H-LIPID PANEL 09/02/2015 H-PSA SCREEN 09/02/2015 H-TSH 09/02/2015 C-CBC 01/08/2015 C-CMP 01/08/2015 C-LIPID PANEL 01/08/2015 C-TSH 01/08/2015 C-VITAMIN B12 01/08/2015 C-HGBA1C 01/08/2015 C-VITAMIN D, 25-HYDROXY 01/08/2015 Ultrasound : Aorta 02/27/2025 M-Comprehensive Metabolic Panel 09/09/19 M-Lipid Panel 09/08/2018 M-Prostate Specific Ag Screen 09/23/2020 CT Scan : Chest wall, no contrast 2022 TESTOSTERONE, [place], [place] ([id number]) 2024 Insurance Providers Payer Name Payer Address Payer Phone Subscriber Number Group Number Insured Name Patient Relationship to Insured Coverage Start Date Coverage End Date [facility] [address] [place] [address] [id number] Thad Fontana Self - patient is the insured Medications Administered Medication Instructions Date of Administration Dosage Notes Dexamethasone 4mg Injection 02/17/2022 4 mg Dexamethasone 4mg Injection 06/05/2024 4 mg Dexamethasone 4mg Injection 07/19/2024 4 mg Triamcinolone Acetonide 40mg Injection 08/08/2019 1 mL Triamcinolone Acetonide 40mg Injection 10/16/2020 1 mL Kenalog 11/07/2015 1 Medical (General) History Medical History History ICD Code acid reflux with esophagitis and duodeni tis torn achilles tendon (right) 2008 club foot at prostate issues Colonoscopy October 2015 with tubular ernesto joseph - repeat in 2020 cysts on Liver and kidney gallbladder DWIGHT, moderate, HST 04/2024 Surgical History Surgery Date(Month/Year) 14 surgeries to correct right leg, club foot 1960 umbilical hernia repair, Dr Walsh 2014- colonosopy x 1 polyp 11/2015 Gallbladder 2021 Hospitalization History Reason Date(Month/Year) pneumonia as a child above surgeries
--- OUTSIDE RECORDS SUMMARY | 2025-03-19 10:32 | XMS_ITS | Clinical Summary ---
Author Organization [facility] Address [address] [place] [address] Care Team Providers Care Steam Brush Operator Name Role Phone Juan Mcgill MD Primary Care Provider + [phone] Allergies Active Allergy Reactions Criticality Noted Date Comments Corticosteroids Other (See Comments) 11/15/2014 Medications pravastatin (PRAVACHOL) 20 MG tablet Take 1 tablet by mouth Daily. Active vitamin B-12 (CYANOCOBALAMIN) 500 MCG tablet Take 1 tablet by mouth Daily. Active Cholecalciferol (Vitamin D3) 50 MCG (2000 UT) tablet Active Vitamin E 400 units tablet Active ascorbic acid (VITAMIN C) 100 MG tablet Take by mouth Daily. Active Vonoprazan Fumarate (Voquezna) 20 MG tablet Take 1 tablet by mouth Daily. Active rOPINIRole (REQUIP) 1 MG tablet Take 1 tablet by mouth every night at bedtime. 03/03/2024 Active meloxicam (MOBIC) 7.5 MG tablet Take 1 tablet by mouth Daily. 01/05/2024 Active Vonoprazan Fumarate (Voquezna) 20 MG tabletIndication s:Gastroparesis, Chest discomfort,Abdom inal pain, unspecified abdominal location Take 1 tablet by mouth Daily. 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 Low back pain 12/08/2023 Paresthesia 12/08/2023 Abdominal bloating 12/08/2023 Abdominal pain 12/08/2023 Abnormal findings on diagnos tic imaging of liver and biliary tract 12/08/2023 Acquired inequality of length of extremity 12/07 Altered bowel function 12/08/2023 Chronic pain of right ankle 12/08/2023 Clubfoot 12/08/2023 Cough 12/08/2023 DDD (degenerative disc disease), lumbar 12/08/19 Delayed gastric emptying 12/08/2023 Fibrocystic disease of liver 12/08/2023 H/O clubfoot correction 12/08/2023 Heartburn 12/08/2023 Limb weakness 12/08/2023 Lumbar radiculopathy 12/08/2023 Muscle ache 12/08/2023 Obesity, Class II, BMI 35-39.9 12/08/2023 Peroneal tendinitis, right leg 12/08/2023 Primary osteoarthritis, right ankle and foot 11/2023 Right ankle instability 12/08/2023 URI (upper respiratory infection) 12/08/2023 Gastroesophageal reflux disease without esophagi tis 05/04/2022 Isolated polycystic liver disease 03/23/2022 Family History Medical History Relation Name Comments Colon cancer Father Relation Name Status Comments Father Social History Tobacco Use Types Packs/Day Years Used Date Smoking Tobacco: Former Cigarettes Smokeless Tobacco: Never Tobacco Cessation:Counseling Given: Not Answered Alcohol Use Standard Drinks/Week Comments Yes 0 (1 standard drink = 0.6 oz pur e alcohol) Rarely Abuse Screen Answer Date Recorded Unsafe at Home or Work/School Not on file Feels Threatened by Someone? Not on file 03/2023 Does Anyone Keep You from Co ntacting Others or Doint Things Outside the Home? Not on file 04/12/2023 Physical Sign of Abuse Present Not on file 1 Housing Stability Answer Date Recorded Current Living Arrangements Not on file 03/2023 Potentially Unsafe Housing Conditions Not on michelle e 04/12/2023 Family and Community Support Answer Jimmie e Recorded Help with Day-to-Day Activities Not on file 04/12/2023 Lonely or Isolated Not on file 04/12/2023 Employment Answer Date Recorded Do you want help finding or keeping work or a silvio b? Not on file 04/12/2023 Disabilities Answer Date Recorded Concentrating, Remembering, or Making Decisions Difficulty Not on file 04/12/2023 Doing Errands Independently Difficulty Not on fi le 04/12/2023 Education Answer Date Recorded Help with school or training? Not on file Preferred Language Not on file 04/12/2023 Sex and Gender Information Value Date Recorded Sex Assigned at Not on file Legal Sex Male 12:07 PM EDT Gender Identity Not on file Sexual Orientation Not on file Last Filed Vital Signs Vital Sign Reading Time Taken Comments Blood Pressure 140/80 03/08/2024 12:10 PM EDT Pulse 68 03/08/2024 12:10 PM EDT Temperature - - Respiratory Rate 18 03/08/2024 12:10 PM EDT Oxygen Saturation 97% 03/08/2024 12:10 PM EDT Inhaled Oxygen Concentration - - Weight 112 kg (248 lb) 03/08/2024 12:10 PM EDT Height 172.7 cm (5' 8 ) 03/08/2024 12:10 PM EDT Body Mass Index 37.71 03/08/2024 12:10 PM EDT Plan of Treatment Health Maintenance Due Date Last Done Comments TDAP/TD VACCINES (1 - Tdap) 1979 COLOGUARD 2005 COLON CANCER SCREENING [address] COLONOGRAPHY 2005 FECAL OCCULT BLOOD TEST 2005 FIT Testing (1 year) 2005 Pneumococcal Vaccine 50+ (1 of 1 - PCV) 2010 ZOSTER VACCINE (1 of 2) 2010 ANNUAL PHYSICAL 12/01/2023 HEPATITIS C SCREENING 12/01/2023 COVID-19 Vaccine ( season) 2025 INFLUENZA VACCINE 04/04/2025 COLONOSCOPY 03/26/2032 03/26/2022, 010 07/2021, 07/05/2015 COLORECTAL CANCER SCREENING 03/26/2032 Procedures Procedure Name Priority Date/Time Associated Diagnosis Comments SCANNED - COLONOSCOPY 03/26/2022 from Last 3 Months or Most Recently Relevant to Health Maintenance Results * Colonoscopy, Scan (03/26/2022) Lisandra Owen APRN CHART REVIEW TABS Final R esult from Last 3 Months or Most Recently Relevant to Health Maintenance Insurance [facility] Care Teams Steam Brush Operator Relationship Specialty Start Date End Date Juan Mcgill MD [address] [facility] [address] [place] [address] PCP - General Adolescent Medicine 11/18/23
== END 2025-03-19 23:59 | disposition home or self-care (01) ==
LOC: RAD 10:26
PROVIDERS: PCP Internal Medicine Adolescent Medicine; Visit Provider Nurse Practitioner Family
DX: I71.9 Aortic aneurysm of unspecified site, without rupture (principal); Z82.49 Family history of ischemic heart disease and other diseases of the circulatory system
CPT/HCPCS: 76770

== ENCOUNTER 2025-04-24 10:47 | Outpatient (CLI) | payer OTHER, SELFPAY ==
--- OUTSIDE RECORDS SUMMARY | 2025-04-24 10:51 | XMS_ITS | Clinical Summary ---
Author Organization [facility] Phone Care Team Providers Care Theatre Arts Professor Name Role Phone Unavailable Primary Care Provider Unavailabl e Social History Tobacco Use Types Packs/Day Years Used Date Smoking Tobacco: Never Assessed Sex and Gender Information Value Date Recorded Sex Assigned at Not on file Legal Sex Male 11:55 AM EDT Gender Identity Not on file Sexual Orientation Not on file Plan of Treatment Upcoming Encounters Date Type Department Care Team (Late st Contact Info) Description 04/26/2025 2:00 PM EDT Office Visit [facility] [address] [place] [id number] Tramaine Bragg MD [address] [place] [id number] Health Maintenance Due Date Last Done Comments Annual Wellness Exam 1963 Hepatitis C Screening 1978 DTaP/TDaP/Td (1 - Tdap) 1979 Cologuard 2005 Colon Cancer Screening 2005 Colonoscopy 2005 FIT 2005 Sigmoidoscopy 2005 Virtual Colonography 2005 Pneumococcal Vaccine 50+ (1 of 1 - PCV) 2010 Zoster (1 of 2) 2010 COVID-19 Vaccine (2024-2 6 season) 2025 Influenza Vaccine (#1) 2025 Hepatitis B Vaccine Aged Out No longe r eligible based on patient's age to complete this topic Meningococcal B Vaccine Aged Out No l onger eligible based on patient's age to complete this topic
--- OUTSIDE RECORDS SUMMARY | 2025-04-24 10:51 | XMS_ITS | Clinical Summary ---
Author Organization [facility] Address [address] [place] [address] Care Team Providers Care Park Interpretive Specialist Name Role Phone Juan Mcgill MD Primary Care Provider + [phone] Allergies Active Allergy Reactions Criticality Noted Date [...] ANNUAL PHYSICAL 12/01/2023 HEPATITIS C SCREENING 12/01/2023 INFLUENZA VACCINE 02/02/2025 COLONOSCOPY 03/26/2032 03/26/2022, 0107/2021, 07/05/2015 COLORECTAL CANCER SCREENING 03/26/2032 Procedures Procedure Name Priority Date/Time Associated Diagnosis Comments SCANNED - COLONOSCOPY 03/26/2022 from Last 3 Months or Most Recently Relevant to Health Maintenance Results * Colonoscopy, Scan (03/26/2022) Lisandra Owen APRN CHART REVIEW TABS Final R esult from Last 3 Months or Most Recently Relevant to Health Maintenance Insurance [facility] Care Teams Park Interpretive Specialist Relationship Specialty Start Date End Date Juan Mcgill MD [address] [place] [address] PCP - General Adolescent Medicine 11/18/23
[2025-04-24 11:36] LABS: Blood Urea Nitrogen 12 mg/dl (9-20); Creatinine,Serum 1.00 mg/dl (0.66-1.25); Estimated Glomerular Filt Rate 75 ml/min (>60); GFR (African American) 91 ML/MIN (>60)
== END 2025-04-24 23:59 | disposition home or self-care (01) ==
LOC: LAB 10:47
PROVIDERS: PCP Internal Medicine Adolescent Medicine; Visit Provider Surgery
DX: R14.0 Abdominal distension (gaseous) (principal)
CPT/HCPCS: 36415; 82565; 84520

== ENCOUNTER 2025-05-09 10:08 | Outpatient (CLI) | payer OTHER, SELFPAY ==
--- OUTSIDE RECORDS SUMMARY | 2024-10-07 16:30 | XMS_ITS ---
Author Organization [facility] Address [address] [place] [address] Care Team Providers Care Weapons Officer Name Role Phone Juan Mcgill Primary Care Provider [phone] Juan Mcgill Unavailable Unavailable Migration, Provider Unavailable Unavailable Allergies Allergen (clinical drug ingredient) Drug/Non Drug Allergy documented on EMR Reaction Allergy Type Onset Date Status EPIDURAL INJECTIONS (uncoded) Unknown Allergy [facility] Con[facility] Encounter Medications Medication SIG (Take, Route, Frequency, Duration) Notes Start Date End Date Status rOPINIRole HCl 1 MG 1 tab(s) orally at bedtime; Duration: 90 days prn 03/03/2024 Active Vitamin D 1000MG 1 TAB ORALLY TWICE A DAY; Duration: 30 DAYS once a day *Please review and pick correct strength-formulatio n from [employer] options. If intended option is not shown, discontinue and re-order from Quick Search* Active Pravastatin Sodium 20 MG 1 tab(s) orally once a day; Duration: 90 Active Vitamin E 400 IU 1 TAB QD *Please review and pick correct strength-formulatio n from [employer] options. If intended option is not shown, discontinue and re-order from Quick Search* Active Vitamin C 500 MG 1 tab(s) orally once a day; Duration: 30 day(s) Active Voquezna 20 MG 1 tab(s) orally once a day; Duration: 90 days 11/04/2023 Active Meloxicam 7.5 MG 1 tab(s) orally once a day prn Active Vitamin B 12 500 MCG 1 tab(s) orally once a day; Duration: 30 day(s) Active Encounters Encounter Location Date Provider Diagnosis [facility] [address] [facility] [address] [place] [address] 10/07/2024 Provider Migration Plan Of Treatment No Information Progress Notes * Thad HDEZDOB:1960 (64 yo M)Acc No.[id number]:10/07/2024 Patient: Thad CUNNINGHAM Provider: Karlie floyd Migration :1960 A ge:64 Y S ex:Male Date:10/07/2024 Address:[address] [place], [place] [address], [id number] Pcp:Juan Mcgill Subjective: * Chief Complaints: * 1 . [facility] Conversion Encounter. * Medical History: * Medications: T aking Meloxicam 7.5 MG Tablet 1 tab(s) orally once a day , Notes to Pharmacist: prn, Taking Vitamin B 12 500 MCG Tablet 1 tab(s) orally once a day , Taking Vitamin E 400 IU 1 TAB QD , Notes to Pharmacist: *Please review and pick correct strength-formulation from [employer] options. If intended option is not shown, discontinue and re-order from Quick Search*, Taking Vitamin C 500 MG Tablet 1 tab(s) orally once a day , Taking Vitamin D 1000MG 1 TAB ORALLY TWICE A DAY , Notes to Pharmacist: once a day *Please review and pick correct strength-formulation from [employer] options. If intended option is not shown, discontinue and re-order from Quick Search*, Taking Pravastatin Sodium 20 MG Tablet 1 tab(s) orally once a day , Taking rOPINIRole HCl 1 MG Tablet 1 tab(s) orally at bedtime , Notes to Pharmacist: prn, Taking Voquezna 20 MG Tablet 1 tab(s) orally once a day * Allergies: E PIDURAL INJECTIONS. Objective: * Vitals: Assessment: Plan: * Treatment: * * Electronic signature of Prov ider Migration on 05/09/2025 at 10:16 AM EST Sign off status: Pending * Provider: Karlie floyd Migration Date: 0 10/07/2024 Generated for Janelle vital/Kee/Harrison on: 1 07/09/2024 10:16 AM EST
--- OUTSIDE RECORDS SUMMARY | 2025-04-18 06:00 | XMS_ITS ---
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 Diagnosis 1 Ankle arthropathy (M 19.079) Referral Organization [facility] Referring Provider First Name Juan Referring Provider Last Name Artem Referring Provider Speciality Internal M edicine Referred Organization [facility] Referred Address [address] [place], [place],[address], Referred Provider Specialty Orthopedic S urgery Referral Priority Routine Referral Appointment Date 04/26/2025 REASON FOR VISIT Toe is going numb, hand pain, possible labs Medications Medication SIG (Take, Route, Frequency, Duration) Notes Start Date End Date Status Voquezna 20 MG Take 1 tablet by mouth once daily; Duration: 90 Active Pravastatin Sodium 20 MG 1 tab(s) orally once a day; Duration: 90 days Active Vitamin D 1000MG 1 TAB ORALLY [...] review and pick correct strength-formulatio n from [employer]ang[employer]an options. If intended option is not shown, discontinue and re-order from Quick Search* Active Vitamin B 12 500 MCG 1 tab(s) orally once a day; Duration: 30 day(s) Active Meloxicam 7.5 MG 1 tab(s) orally once a day prn Active Fish Oil 300 MG 1 capsule Orally Three times a day Active Fluticasone Propionate 50 MCG/ACT 1 spray in each nostril Nasally Twice a day; Duration: 30 days 04/18/2025 Active Immunizations Vaccine Route Administration Date Status Comme nts FLUCELVAX IM Intramuscular 04/18/2025 Administered Problems Problem Type SNOMED Code ICD Code Onset Dates Problem Status W/U Status Risk Notes Problem Chronic serous otitis media (79621594) Right chronic serous otitis media (H65.21) Active confirmed Problem Obstructive sleep apnea (27163339) Obstructive sleep apnea (G47.33) Active confirmed Vital Signs Temperature 97.5 degrees Fahrenheit 04/18/20 25 Blood pressure systolic 126 mm Hg 04/18/20 25 Blood pressure diastolic 84 mm Hg 025 Heart Rate 76 /min 04/18/2025 Height 68 in 04/18/2025 Weight 252 lbs 04/18/2025 BMI 38.31 kg/m2 04/18/2025 Encounters Encounter Location Date Provider Diagnosis [facility] [address] [place] [address] 04/18/2025 Juan Mcgill Right chronic serous otitis media H65.21 ; Unspecified abdominal pain R10.9 ; Other chronic pain G89.29 ; Encounter for immunization Z23 ; Ankle arthropathy M19.079 ; Obstructive sleep apnea G47.33 and Gastroesophageal reflux disease with esophagitis without hemorrhage K21.00 Assessments Encounter Date Diagnosis (ICD Code) Assessment Notes Treatment Notes Treatment Clinical Notes Section Notes 04/18/2025 Right chronic serous otitis media (ICD-10 - H65.21) TM clear but bulging, looks consistent with serous OM. Flonase prescribed, take everyday 04/18/2025 Unspecified abdominal pain (ICD-10 - R10.9) F/U with General surgery for abdominal management and tracking of liver lesions 04/18/2025 Other chronic pain (ICD-10 - G89.29) 04/18/2025 Encounter for immunization (ICD-10 - Z23) 04/18/2025 Ankle arthropathy (ICD-10 - M19.079) referred to Ortho [facility] due to multiple ankle fxs and complexity of condition. 04/18/2025 Obstructive sleep apnea (ICD-10 - G47.33) CPAP machine is being delivered, try it and follow-up. If no imrpovement referral to sleep specialist will be made 04/18/2025 Gastroesophageal reflux disease with esophagitis without hemorrhage (ICD-10 - K21.00) Continue meds, follow-up with Gen Surg who did EGD scope Plan Of Treatment Medication Medication Name Sig Start Date Stop Date Notes Fluticasone Propionate 50 MCG/ACT 1 spray in each nostril Nasally Twice a day; Duration: 30 days 04/18/2025 Treatment Notes Assessment Notes Right chronic serous otitis media TM stiven ar but bulging, looks consistent with serous OM. Flonase prescribed, take everyday Unspecified abdominal pain F/U with Gene ral surgery for abdominal management and tracking of liver lesions Ankle arthropathy referred to [facility] due to multiple ankle fxs and complexity of condition. Obstructive sleep apnea CPAP machine is being delivered, try it and follow-up. If no imrpovement referral to sleep specialist will be made Gastroesophageal reflux dise ase with esophagitis without hemorrhage Continue meds, follow-up with Gen Surg who did EGD scope Referrals Referral Date Details 04/18/2025 04/18/2025, [facility] deformity, [facility] [place], [address], Next Appt Details Follow Up: 2 Months, Reason: Progress Notes * Thad HDEZDOB:1960 (64 yo M)Acc No.[id number]:04/18/2025 Progress Notes Patient: Thad CUNNINGHAM Provider: Edy Mcgill MD :1960 A ge:64 Y S ex:Male Date:04/18/2025 Address:[address] [place], [place] [id number] Subjective: * Chief Complaints: * 1 . Toe is going numb, hand pain, possible labs. * HPI: g en: Pt here for MULTIPLE Issues: 1. pt states he has had arthritis in his right ankle that hurts. He was offered a bone fusion but doesn't want it. 2. His 4th toe on his left foot is painful at the base. Denies any injury or trauma. 3. Pt has arthritis in knees and hands. 4. Pt fatigued and not sleeping well, CPAP ordered, hasn't received it yet 5. Pt has bad abd pain, states saw gen surg 10 years ago and they took out gallbladder. supposed to see them soon bc last time he had liver lesions. 6. says GERD is bad and not getting better, on meds for it, says it helps. 7. Feels like there's water in his right ear. * Medical History: A ankita reflux with [...] M aternal aunt: alive. S iblings: alive, uwcxuod-kwlikjur-zvhmzfhys of liver. C hildren: alive. 2 brother(s) . 2 son(s) - [...] active: yes. Travel outside [place]: no. 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 * Medications: T aking Fish Oil 300 [...] *Please review and pick correct strength-formulation from Medispan options. If intended option is not shown, discontinue and re-order from Quick Search*, Taking Vitamin C 500 MG Tablet 1 tab(s) orally once a day , Taking Vitamin D 1000MG 1 TAB ORALLY daily , Notes to Pharmacist: once a day *Please review and pick correct strength-formulation from [employer] System[employer]pan options. If intended option is not shown, discontinue and re-order from Quick Search*, Taking Pravastatin Sodium 20 MG Tablet 1 tab(s) orally once a day , Taking Voquezna 20 MG Tablet Take 1 tablet by mouth once daily , Medication List reviewed and reconciled with the patient * Allergies: E PIDURAL INJECTIONS. Objective: * Vitals: N urse: be, Pain: 8, Temp: 97.5, RR: 16, HR: 76, BP: 126/84, Ht: 68, Wt: 252, BMI:38.31. * Examination: G eneral Examination: General P leasant and Cooperative, NAD on RA,. Heart: R egular Rate and Rhythm, no murmur, rubs or gallops. HEENT: p harynx and tonsils normal, Right TM bulging and clear, bony landmarks not visualized. Abdomen: S oft, non-distended. TTP difuse, BSNA, No organomegaly or peritoneal signs.. Extremities: n ormal ROM,, no clubbing, no edema,, no foot lesions, TTP over right lateral mallelous and base of 4th phalange on left foot. ? Assessment: * Assessment: 1. R ight chronic serous otitis media - H65.21 (Primary) 2 . U nspecified abdominal pain - R10.9 3 . O ther chronic pain - G89.29 4 . E ncounter for immunization - Z23 5 . A nkle arthropathy - M19.079 6. O bstructive sleep apnea - G47.33 7 . G astroesophageal reflux disease with esophagitis without hemorrhage - K21.00 Plan: * Treatment: 2. U nspecified abdominal pain Notes: F/U with General surgery for abdominal management and tracking of liver lesions 3. E ncounter for immunization Start Fluticasone Propionate Suspension, 50 MCG/ACT, 1 spray in each nostril, Nasally, Twice a day, 30 days, 2, Refills 3. 4. A nkle arthropathy Notes: referred to [facility] due to multiple ankle fxs and complexity of condition. ? Referral To: Reason:[facility] for chronic ankle deformity 5. O bstructive sleep apnea Notes: CPAP machine is being delivered, try it and follow-up. If no imrpovement referral to sleep specialist will be made 6. G astroesophageal reflux disease with esophagitis without hemorrhage Notes: Continue meds, follow-up with Gen Surg who did EGD scope * Immunizations: FLUCELVAX : 0.5 mL (Route: Intramuscular) given by JANINA Vasquez on Left Deltoid * Procedure Codes: 9 0661 FLUCELVAX, 34927 ADMINISTRATION IMMUNIZATION ONE VACCINE * Follow Up: 2 Months * * Sign off status: Completed true * Provider: Edy Mcgill MD Date: Generated for Janelle vital/Kee/eTransmitting on: 07/09/2024 10:16 AM EST History and Physical Notes * HPI (History of Present Illness) Category Sub-Category Detail Notes Category Not es gen Pt here for MULTIPLE Issues: 1. pt states he has had arthritis in his right ankle that hurts. He was offered a bone fusion but doesn't want it. 2. His 4th toe on his left foot is painful at the base. Denies any injury or trauma. 3. Pt has arthritis in knees and hands. 4. Pt fatigued and not sleeping well, CPAP ordered, hasn't received it yet 5. Pt has bad abd pain, states saw gen surg 10 years ago and they took out gallbladder. supposed to see them soon bc last time he had liver lesions. 6. says GERD is bad and not getting better, on meds for it, says it helps. 7. Feels like there's water in his right ear. Examination Category Sub-Category Detail Notes Category Not es General Examination HEENT: pharynx and tonsils normal, Right TM bulging and clear, bony landmarks not visualized Heart: Regular Rate and Rhy thm, no murmur, rubs or gallops Abdomen: Soft, non-distended. TTP difuse, BSNA, No organomegaly or peritoneal signs. Extremities: normal ROM,, no club ivis, no edema,, no foot lesions, TTP over right lateral mallelous and base of 4th phalange on left foot General Pleasant and Coopera tive, NAD on RA, Consultation Request Notes Referral Date Referring Provider Referred Provider Not es 04/18/2025 Juan Mcgill , [facility] for chronic ankle deformity
--- OUTSIDE RECORDS SUMMARY | 2025-04-26 12:45 | XMS_ITS | Encounter Summary ---
Author Organization [facility] Address [address] [place] [address] Care Team Providers Care Nutrition Partner Name Role Phone Unavailable Primary Care Provider Unavailabl e Encounter Details Date Type Department Care Team (Late st Contact Info) Description 04/26/2025 1:45 PM EDT Ancillary Procedure [facility] [address] [place] [id number] Tramaine Bragg MD [address] [facility] [address] [place] [phone] Bilateral foot pain Social History Tobacco Use Types Packs/Day Years Used Date Smoking Tobacco: Never Assessed Sex and Gender Information Value Date Recorded Sex Assigned at Not on file Legal Sex Male 11:55 AM EDT Gender Identity Not on file Sexual Orientation Not on file documented as of this encounter Plan of Treatment Not on file documented as of this encounter Procedures Procedure Name Priority Date/Time Associated Diagnosis Comments XR FOOT BILATERAL AP LATERAL AND OBLIQUE STANDING Routine 04/26/2025 2:08 PM EDT Bilateral foot pain documented in this encounter Results * XR FOOT BILATERAL AP LATERAL AND OBLIQUE STANDING (04/26/2025 2:08 PM EDT) Narrative Genericuser, Audit - 04/26/2025 2:08 PM EDT Please see physician's note from office encounter for x-ray imaging result us Tramaine Bragg MD IMG DIAGNOSTIC IMAGING ORDER QIAN Final Result documented in this encounter Visit Diagnoses Diagnosis Bilateral foot pain Pain in limb documented in this encounter
--- OUTSIDE RECORDS SUMMARY | 2025-04-26 13:00 | XMS_ITS | Encounter Summary ---
Author Organization [facility] Address [address] [place] [address] Care Team Providers Care Cryptanalyst Name Role Phone Unavailable Primary Care Provider Unavailabl e Reason for Visit * Reason Comments Pain Pain Encounter Details Date Type Department Care Team (Late st Contact Info) Description 04/26/2025 2:00 PM EDT Office Visit [facility] [address] [place] [id number] Tramaine Bragg MD [address] [place] [id number] Bilateral foot pain (Primary Dx); Arthritis of right midfoot; Achilles tendinitis of right lower extremity; Hammertoe of left foot Social History Tobacco Use Types Packs/Day Years Used Date Smoking Tobacco: Never Assessed Sex and Gender Information Value Date Recorded Sex Assigned at Not on file Legal Sex Male 11:55 AM EDT Gender Identity Not on file Sexual Orientation Not on file documented as of this encounter Last Filed Vital Signs Vital Sign Reading Time Taken Comments Blood Pressure - - Pulse - - Temperature - - Respiratory Rate - - Oxygen Saturation - - Inhaled Oxygen Concentration - - Weight 115.4 kg (254 lb 8 oz) 04/26/2025 2:15 PM EDT Height 172.7 cm (5' 8 ) 04/26/2025 2:15 PM EDT Body Mass Index 38.7 04/26/2025 2:15 PM EDT documented in this encounter Progress Notes * Tramaine Bragg MD - 04/26/2025 2:00 PM EDT Images from the original note were not included. Basim Bragg MD Foot and Ankle Surgery and Sports [email or web address] Subjective: 04/26/2025 Thad Fontana 64 y.o. male. HPI: History of Present Illness The patient is a 60-year-old male who presents for evaluation of bilateral foot pain. He reports experiencing numbness in the fourth toe of his left foot, which has been ongoing for thepast few months. He also experiences intermittent pain in the same toe. He is not diabetic and doesnot regularly take blood thinners. His current medication regimen includes cholesterol medication and fish oil supplements. His primary concern is a burning sensation in his right ankle and foot, which has been present for approximately 2 years. This discomfort is particularly bothersome at night. He underwent foot surgery at the age of 12 or 14 but has not had any surgical interventions as an adult. He sought treatmentfrom a specialist in [place], who administered injections into his ankle. The third injection caused significant pain due to a bent needle. Despite the temporary relief provided by the injections, he was informed that this was a palliative measure. He has also tried using ankle braces, but these were removed due to leg swelling. He has been taking meloxicam for a Goodwin's cyst and to manage his a nkle pain, but its effectiveness is unclear as he only takes it when planning to walk. His doctor recently advised him to take meloxicam every other day for inflammation. PAST SURGICAL HISTORY: Foot surgery at the age of 12 or 14. Objective: PHYSICAL EXAMINATION: General: Well appearing with appropriate affect. Neuro: Alert and oriented to person, place, and time. Normal neurosensory response to touch. Musculoskeletal: Physical Exam - Musculoskeletal: - Right ankle: Dorsiflexion just barely to neutral with the knee extended, well- healed medial incision, old lateral incision, significant reduction in subtalar motion, mild tenderness at the Achillestendon insertion - Right foot: Pes planovalgus alignment, not passively correctable - Left foot and ankle: Full range of motion, good supple subtalar motion - Left 4th toe: Slight hammertoe deformity - Others: Sensation to light touch intact, no focal bone tenderness Radiology/Laboratory Results: Results - Imaging: - X-ray of the right foot (standing, 3 views): Subtalar arthritis, previous calcaneocuboid joint arthrodesis, and slight flattening arthritic change on the lateral view of the ankle joint - X-ray of the left foot (3 views): No significant arthritic change, mild 4th hammertoe, no evidence of stress fracture - X-ray of the right ankle: Calcification at the Achilles tendon insertion Assessment and Plan: Assessment & Plan ??? Right hindfoot foot and ankle arthritis, remote clubfoot surgery ??? Right calcific Achilles tendinitis ??? Left fourth hammertoe Treatment plan: Achilles tendon stretching exercises and meloxicam daily for 2 weeks are recommended to manage inflammation. If there is no improvement, returning to consider an ankle injection is advised. Surgery is not recommended at this time. Calcification at the Achilles tendon insertion is contributing to symptoms. Achilles tendon stretching exercises and meloxicam daily for 2 weeks are recommended to manage inflammation. If there is noimprovement, returning to consider an ankle injection is advised. Numbness and occasional pain in the 4th toe of the left foot are reported. Physical examination reveals a slight hammertoe deformity. No immediate intervention is required. Follow-up: Return if no improvement to consider an ankle injection. Tramaine Bragg MD Foot and Ankle Surgeon Please note that this material engineer was created using voice recognition software. Any errors are unintentional and may be due to voice recognition material engineer. The provider informed the patient (or legal vaccine customer representative) on the use of the ambient listening artificial intelligence tool, truedash to obtain consent to its use. It was explained that this AI tool processes the conversation to generate a clinical note with the expected benefit of improved accuracy with a goal of improving the encounter experience for the patient and provider.?The provider explained that the medical information captured by the AI tool would be protected by applicable privacy laws. The patient was given an opportunity to ask questions and opt out of proceeding with the use of the AI tool. After being informed of such information, the patient (or legal vaccine customer representative), and each individual in attendance with the patient, consented to the use of the AI tool. Tramaine Bragg MD documented in this encounter Plan of Treatment Not on file documented as of this encounter Results * XR FOOT BILATERAL AP LATERAL AND OBLIQUE STANDING (04/26/2025 2:08 PM EDT) Narrative Genericuser, Audit - 04/26/2025 2:08 PM EDT Please see physician's note from office encounter for x-ray imaging result us Tramaine Bragg MD IMG DIAGNOSTIC IMAGING ORDER QIAN Final Result documented in this encounter Visit Diagnoses Diagnosis Bilateral foot pain- Primary Pain in limb Arthritis of right midfoot Achilles tendinitis of right lower extremity Achilles bursitis or tendinitis Hammertoe of left foot Bilateral foot pain Pain in limb documented in this encounter Historical Medications * This list may reflect changes made after this encounter. ascorbic acid, vitamin C, (VITAMIN C) 500 mg Oral Tablet Take 500 mg by mouth daily. mecobalamin, vitamin B12, 1,000 mcg Oral Tablet, Chewable Take 1,000 mcg by mouth daily. 07/31/2021 meloxicam (MOBIC) 7.5 mg Oral Tablet Take 20 mg by mouth daily (with breakfast). 01/05/2024 pravastatin (PRAVACHOL) 20 mg Oral Tablet Take 20 mg by mouth nightly. 09/26/2018 VOQUEZNA 20 mg Oral Tablet Take 20 mg by mouth daily. 11/04/2023 added in this encounter
--- NOTE | 2025-05-09 10:15 | CT_ITS ---
FINAL REPORT TECHNIQUE: Thin section axial images were obtained through the abdomen after intravenous contrast. Oral contrast was given. Reconstruction images were obtained from the axial data. Exam was performed using dose reduction techniques. CLINICAL HISTORY: Liver lesions COMPARISON: 09/11/2016 FINDINGS: The lung bases are clear. There are multiple hypodense liver lesions. Some of these lesions have increased in size but still all likely cysts. The gallbladder is not visualized. The spleen, adrenal glands, and pancreas are unremarkable. There is no hydronephrosis or solid renal mass. Abdominal GI tract is without acute abnormality. There is no abdominal lymphadenopathy or ascites. There is no evidence of small bowel obstruction. The appendix is normal. The prostate is unremarkable. There is no pelvic lymphadenopathy or ascites. No acute osseous abnormalities identified. IMPRESSION: Multiple hypodense liver lesions, favor cysts. Some have increased in size however not unexpected given time difference of 8 years. Reviewed, Interpreted and Dictated by Betty Abarca MD Transcribed by Beatrice Snowden Authenticated and [facility]
--- OUTSIDE RECORDS SUMMARY | 2025-05-09 10:16 | XMS_ITS | Patient Health Record ---
Author Organization [facility] Address [address] [place] [address] Care Team Providers Care Human Resources Clerk Name Role Phone Juan Mcgill Primary Care Provider [phone] Juan Mcgill Unavailable Unavailable May Aviles Unavailable [phone] Migration, Provider Unavailable Unavailable Allergies Allergen (clinical drug ingredient) Drug/Non Drug Allergy documented on EMR Reaction Allergy Type Onset Date Status EPIDURAL INJECTIONS (uncoded) Unknown Allergy Active Results Component Value Reference Range Notes LIPID PANEL, STANDARD (7600) Reviewed date:09/20/2024 07:59:24 AM Interpretation: Performing Lab:CB, [facility] Ndmt1301 [facility], [facility] ClinicEtzyLB[address] Nikhil Mukherjee Notes/Report: NON-FASTING NON-FASTING NON-FASTING NON-FASTING NON-FASTING NON-FASTING CHOLESTEROL, TOTAL 202 <200 mg/dL HDL CHOLESTEROL 33 > OR = 40 mg/dL TRIGLYCERIDES 522 <150 mg/dL If a non-fasting specimen was collected, consider repeat triglyceride testing on a fasting specimen if clinically indicated. Tinoco et al. J. of Clin. Lipidol. 2015;9:129-169. [...] LDL-C. William GAXIOLA et al. TYLER. 2013;310(19): 6111-5346 (http://education.TapMe/faq/WUT604) CHOL/HDLC RATIO 6.1 <5.0 (calc) NON HDL CHOLESTEROL 169 <130 mg/dL (calc) For patients with diabetes plus 1 major ASCVD risk factor, treating to a non-HDL-C goal of <100 mg/dL (LDL-C of <70 mg/dL) is considered a therapeutic option. HEMOGLOBIN A1c (496) Reviewed date:09/20/2024 07:59:24 AM Interpretation: Performing Lab:NICK[facility] [employer] [place], [place] HerzogDthpVC[address] Nikhil Mukherjee Notes/Report: NON-FASTING NON-FASTING NON-FASTING NON-FASTING [...] diagnosis of diabetes in children. According to [place] Diabetes Association (ADA) guidelines, hemoglobin A1c <7.0% represents optimal control in non- diabetic patients. Different metrics may apply to specific patient populations. Standards of Medical Care in Diabetes(ADA). VITAMIN B12/FOLATE, SERUM PA DANIEL (0913) Reviewed date:09/20/2024 07:59:24 AM Interpretation: Performing Lab:NICKY [facility] [address] [facility], [employer] BzqtKG[address] Nikhil Mukherjee Notes/Report: NON-FASTING NON-FASTING NON-FASTING NON-FASTING NON-FASTING NON-FASTING VITAMIN B12 568 438-7434 pg/mL FOLATE, SERUM 13.7 Reference Range Low: <3.4 Borderline: 3.4-5.4 Normal: >5.4 PSA, TOTAL (5363) Reviewed date:09/20/2024 07:59:24 AM Interpretation: Performing Lab:[facility] Naxx[address] [employer] [facility], [facility] ClinicVtveET[address] Nikhil Mukherjee Notes/Report: NON-FASTING NON-FASTING NON-FASTING NON-FASTING NON-FASTING NON-FASTING PSA, TOTAL 0.82 < OR = 4.00 ng/mL The total PSA value from this assay system is standardized against the WHO standard. The test result will be approximately 20% lower when compared to the equimolar-standardized total PSA (Nelda Marisela). Comparison of serial PSA results should be interpreted with this fact in mind. This test was performed using the Siemens chemiluminescent method. Values obtained from different assay methods cannot be used interchangeably. PSA levels, regardless of value, should not be interpreted as absolute evidence of the presence or absence of disease. CBC (INCLUDES DIFF/PLT) (639 9) Reviewed date:09/20/2024 07:59:24 AM Interpretation: Performing Lab:[facility] Tymz[address] [employer] [facility], [facility]NhwkJH[address] Nikhil Mukherjee Notes/Report: NON-FASTING NON-FASTING NON-FASTING NON-FASTING [...] MPV 11.3 7.5-12.5 fL ABSOLUTE NEUTROPHILS [phone] cells/uL ABSOLUTE LYMPHOCYTES 6820 295-0175 cells/uL ABSOLUTE MONOCYTES 480 200-950 cells/uL ABSOLUTE EOSINOPHILS 233 15-500 cells/uL ABSOLUTE BASOPHILS 83 0-200 cells/uL NEUTROPHILS 64.1 LYMPHOCYTES 25.3 MONOCYTES 6.4 EOSINOPHILS 3.1 BASOPHILS 1.1 COMPREHENSIVE METABOLIC PANE Collin (22126) Reviewed date:09/20/2024 07:59:24 AM Interpretation: Performing Lab:CB, [facility] [address], [place] MorganJnzaOF[address] Nikhil Mukherjee Notes/Report: NON-FASTING NON-FASTING NON-FASTING NON-FASTING [...] 21 10-35 U/L ALT 22 9-46 U/L Rapid Covid/Flu A-B Combo Reviewed date:06/21/2024 08:58:30 PM Interpretation: Performing Lab: Notes/Report: Rapid Covid neg Flu A neg Flu B neg TESTOSTERONE, TOTAL, MS (059 65) Reviewed date:09/25/2024 02:48:07 PM Interpretation: Performing Lab:Z3E, [facility] [address], [address], DzseduhtyoRX[address] Nely Villegas MD,PhD Notes/Report: NON-FASTING TESTOSTERONE, TOTAL, MS 524 [address]97-3442 ng/dL For additional information, please refer to https://[employer].Stantum/faq/TotalTest osteroneLCMSMS (This link is being provided for informational/educational purposes only.) (Note) This test was developed and its analytical performance characteristics have been determined by [employer]. It has not been cleared or approved by the FDA. This assay has been validated pursuant to the CLIA regulations and is used for clinical purposes. [facility] [address] [address],[address] [facility] [address] Nely Villegas MD, PhD Ultrasound : Aorta Reviewed date:03/22/2025 03:21:14 PM Interpretation: Performing Lab: Notes/Report: Rapid Covid/Flu A-B Combo Reviewed date:07/10/2024 02:51:28 PM Interpretation: Performing Lab: Notes/Report: Rapid Covid negative Flu A positive Flu B negative Urinalysis Reviewed date:02/23/2025 04:54:49 PM Interpretation: Performing Lab: Notes/Report: Color/Clarity yellow Leuk neg Nitrite neg Urobili 1.0 Protein neg pH 6.5 Blood neg Sp. Gr. 1.020 Ketone neg Bili neg Glucose neg Reason For Referral Reason medical records for disability determination Referral Organization [facility] Referring Provider First Name Juan Referring Provider Last Name Isaiadelfo Referring Provider Speciality Internal M edicine Referral Priority Routine Reason Needs echo and CTA c hest to screen for thoracic aortic aneurysm Diagnosis 1 FH: aneurysm (Z82.49 ) Referral Organization [facility] RYAN Referring Provider First Name May Referring Provider Last Name Traci Referring Provider Speciality Family Pra ctice Referred Organization [facility] Referred Address [address] [facility] [address] [facility], [place], [place],[address], Referred Provider Specialty Diagnostic R adiology General Notes Connie Kay 2024 10:02:23 AM >pending precert for echo and ccta with RadRahul DORADO Nickie 02/27/2025 03:41:13 PM >deniedRahul Nickie 02/27/2025 03:47:37 PM > Referral Priority Routine Reason Cpap Referral Organization [facility] RYAN Referring Provider First Name May Referring Provider Last Name Traci Referring Provider Speciality Family Pra ctice Referred Organization [facility] Referred Address [address] [place], [place],[address],[place] Referred Provider Specialty DME General Notes Connie Kay 2024 10:32:50 AM >sent to Rajesh Referral Priority Routine Reason [facility] 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 Diagnosis 1 Ankle arthropathy (M 19.079) Referral Organization [facility] Referring Provider First Name Juan Referring Provider Last Name Artem Referring Provider Speciality Internal M edicine Referred Organization [facility] Referred Address [address] [place], [place],[address],[place] Referred Provider Specialty Orthopedic S urgery Referral Priority Routine Referral Appointment Date 04/26/2025 Medications Medication SIG (Take, Route, Frequency, Duration) Notes Start Date End Date Status Voquezna 20 MG Take 1 tablet by mouth once daily; Duration: 90 Active Pravastatin Sodium 20 MG 1 tab(s) orally once a day; Duration: 90 days Active Vitamin D 1000MG 1 TAB ORALLY daily; Duration: 30 days once a day *Please review and pick correct strength-formulatio n from ralalian options. If intended option is not shown, discontinue and re-order from Quick Search* Active Vitamin C 500 MG 1 tab(s) orally once a day; Duration: 30 day(s) Active Vitamin E 400 IU 1 TAB QD *Please review and pick correct strength-formulatio n from ralalian options. If intended option is not shown, [...] Status W/U Status Risk Notes Problem Sciatica (64458578) Lumbago with sciatica, right side (M54.41) Active confirmed Problem Tubular adenoma of colon (146670414) Tubular adenoma of colon (D12.6) Active confirmed Problem Chronic pain (56223542) Other chronic pain (G89.29) Active confirmed Problem Obese class II (983464351169977) BMI 39.0-39.9,adult (Z68.39) Active confirmed Problem Obese class II (844560185180397) BMI 38.0-38.9,adult (Z68.38) Active confirmed Problem Pain in right foot (802838716231990) Right foot pain (M79.671) Active confirmed Problem Obstructive sleep apnea (09844877) Obstructive sleep apnea (G47.33) Active confirmed Problem Chronic serous otitis media (09520006) Bilateral chronic serous otitis media (H65.23) Active confirmed Problem Obese class II (322996047812820) BMI 37.0-37.9, adult (Z68.37) Active confirmed Problem Chronic serous otitis media (69723950) Right chronic serous otitis media (H65.21) Active confirmed Problem Liver cyst (10178812) Liver cyst (K76.89) Active confirmed Problem 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) Active confirmed Problem Restless legs (38399128) Restless leg (G25.81) Active confirmed Problem Benign prostatic hypertrophy without outflow obstruction (092343509) BPH loc w/o ur obs/LUTS (N40.0) Active confirmed Problem Mixed hyperlipidemia (657460941) Hyperlipidemia, mixed (E78.2) Active confirmed Problem Chronic postoperative pain (982454948487768) 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) Active confirmed Problem COVID-19 (989729958) COVID-19 (U07.1) Active confirmed Problem Gastroesophageal reflux disease with esophagitis (disorder) (382408722) Gastroesophageal reflux disease with esophagitis without hemorrhage (K21.00) Active confirmed Problem Localized, primary osteoarthritis of the ankle and/or foot (990950402) 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) Active confirmed Problem Cough (76447233) Cough (R05.9) Active confirmed Vital Signs Heart Rate 76 /min 04/18/2025 Temperature 97.5 degrees Fahrenheit 04/18/2025 Oximetry 76 02/22/2025 Blood pressure diastolic 84 mm Hg 04/18/2025 Height 68 in 04/18/2025 Blood pressure systolic 126 mm Hg 04/18/2025 Weight 252 lbs 04/18/2025 BMI 38.31 kg/m2 04/18/2025 Encounters Encounter Location Date Provider Diagnosis [facility] [address] [facility] [address] [place] [address] 10/07/2024 Provider Migration [facility] [address] [address] 05/18/2024 Juan Mcgill Moderate obstructive sleep apnea G47.33 [facility] [address] [facility] [address] [place], [place] [address] 06/05/2024 May Traci Acute non-recurrent sinusitis of other sinus J01.80 ; BMI 38.0-38.9,adult Z68.38 and Weight loss counseling, encounter for Z71.3 [facility] [address] [place], [place] [address] 06/21/2024 Juan Mcgill Body aches R52 and V iral gastroenteritis A08.4 [facility] [address] [facility] [address] [place], [place] [address] 07/10/2024 Juan Mcgill Acute febrile illnes s R50.9 ; Influenza A J10.1 and Acute cough R05.1 [facility] [address] [facility] [address] [place], [place] [address] 07/19/2024 Juan Mcgill Cough R05.9 [facility] [address] [facility] [address] [place] [address] 09/18/2024 Juan Mcgill Hyperlipidemia, mixe d E78.2 ; Other malaise R53.81 ; Other fatigue R53.83 ; BPH loc w/o ur obs/LUTS N40.0 ; Family history of diabetes mellitus Z83.3 and Lipoma of left upper extremity D17.22 [facility] [address] [facility] [address] [place], [place] [address] 01/11/2025 May Aviles Dysfunction of left eustachian tube H69.92 ; Intermittent vertigo R42 ; BMI 39.0-39.9,adult Z68.39 and DWIGHT (obstructive sleep apnea) G47.33 [facility] [address] [place] [address] 02/22/2025 May Aviles Encounter for CDL (commercial driving license) exam Z02.4 ; Hyperlipidemia, mixed E78.2 ; DWIGHT (obstructive sleep apnea) G47.33 and BMI 38.0-38.9,adult Z68.38 [facility] [address] [place] [address] 04/18/2025 Juan Besson Right chronic serous otitis media H65.21 ; Unspecified abdominal pain R10.9 ; Other chronic pain G89.29 ; Encounter for immunization Z23 ; Ankle arthropathy M19.079 ; Obstructive sleep apnea G47.33 and Gastroesophageal reflux disease with esophagitis without hemorrhage K21.00 [facility] [place] [address] [address] 07/08/2024 Juan Besson [facility] [address] [facility] [address] [place] [address] 10/02/2024 Juan Besson [facility] [address] [address] 10/23/2024 Juan Besson Gastroesophageal ref lux disease with esophagitis without hemorrhage K21.00 [facility] [address] [place] [address] 01/13/2025 May Marieence [facility] [address] [place] [address] 02/08/2025 Mayvishal MarieTraci [facility] [address] [place] [address] 02/23/2025 Mayvishal MarieTraci [facility] [address] [place] [address] 02/27/2025 Juan Besson [facility] [address] [place] [address] 02/27/2025 May Aviles Family history of ao rtic aneurysm Z82.49 [facility] [address] [place], [place] [address] 03/28/2025 May Aviles [facility] [address] [place], [place] [address] 08/10/2024 May Aviles [facility] [address] [place], [place] [address] 08/14/2024 May Aviles [facility] [address] [place], [place] [address] 09/19/2024 Juna Mcgill [facility] [address] [place], [place] [address] 09/20/2024 Juan Mcgill Assessments Encounter Date Diagnosis (ICD Code) Assessment [...] with esophagitis without hemorrhage (ICD-10 - K21.00) 02/22/2025 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 02/22/2025 Hyperlipidemia, mixed (ICD-10 - E78.2) 02/27/2025 Family history of aortic aneurysm (ICD-10 - Z82.49) 01/11/2025 Intermittent vertigo (ICD-10 - R42) 01/11/2025 Dysfunction of left eustachian tube (ICD-10 - H69.92) symptoms are better at time of exam, no vertigo and only intermittent ear symptoms. suspect eustachian tube dysfunction. rec use of flonase and cetirizine OTC routinely for a couple of weeks and then PRN. He knows to call if symptoms recur and aren't improving 04/18/2025 Unspecified abdominal pain (ICD-10 - R10.9) F/U with General surgery for abdominal management and tracking of liver lesions 04/18/2025 Right chronic serous otitis media (ICD-10 - H65.21) TM clear but bulging, looks consistent with serous OM. Flonase prescribed, take everyday 02/22/2025 DWIGHT (obstructive sleep apnea) (ICD-10 - G47.33) 04/18/2025 Other chronic pain (ICD-10 - G89.29) 01/11/2025 BMI 39.0-39.9,adult (ICD-10 - Z68.39) 09/18/2024 [...] and will have to follow very closely 09/18/2024 BPH loc w/o ur obs/LUTS (ICD-10 - N40.0) 01/11/2025 DWIGHT (obstructive sleep apnea) (ICD-10 - G47.33) will investigate coverage of Zepbound due to his concurrent DWIGHT. Already exercising as able on his exercise bike 04/18/2025 Encounter for immunization (ICD-10 - Z23) 02/22/2025 BMI 38.0-38.9,adult (ICD-10 - Z68.38) weight loss encouraged 04/18/2025 Ankle arthropathy (ICD-10 - M19.079) referred to [facility] due to multiple ankle fxs and complexity of condition. 09/18/2024 Family history of diabetes mellitus (ICD-10 - Z83.3) 09/18/2024 Lipoma of left upper extremity (ICD-10 - D17.22) lipoma vs skin nodule. Can continue to monitor and RTC if rapid growth, pain or erythema develope. 04/18/2025 Obstructive sleep apnea (ICD-10 - G47.33) CPAP machine is being delivered, try it and follow-up. If no imrpovement referral to sleep specialist will be made 04/18/2025 Gastroesophageal reflux disease with esophagitis without hemorrhage (ICD-10 - K21.00) Continue meds, follow-up with Gen Surg who did EGD scope Plan Of Treatment Pending Test Test Name [...] wall, no contrast 2022 TESTOSTERONE, [place], [place] ([id number]) 2024 Insurance Providers Payer Name Payer Address Payer Phone Subscriber Number Group Number Insured Name Patient Relationship to Insured Coverage Start Date Coverage End Date [facility] [address] [place] [address] [id number] Thad Fontana Self - patient is the [...]
--- OUTSIDE RECORDS SUMMARY | 2025-05-09 10:16 | XMS_ITS | Clinical Summary ---
Author Organization [facility] Phone Care Team Providers Care Automatic Head Sawyer Name Role Phone Unavailable Primary Care Provider Unavailabl e Allergies No known active allergies Medications VOQUEZNA 20 mg Oral Tablet Take 20 mg by mouth daily. 11/04/2023 Active pravastatin (PRAVACHOL) 20 mg Oral Tablet Take 20 mg by mouth nightly. 09/26/2018 Active meloxicam (MOBIC) 7.5 mg Oral Tablet Take 20 mg by mouth daily (with breakfast). 01/05/2024 Active mecobalamin, vitamin B12, 1,000 mcg Oral Tablet, Chewable Take 1,000 mcg by mouth daily. 07/31/2021 Active ascorbic acid, vitamin C, (VITAMIN C) 500 mg Oral Tablet Take 500 mg by mouth daily. Active Encounters Date Type Department Care Team Description 04/26/2025 2:00 PM EDT Office Visit [facility] [address] [address] Tramaine Bragg MD Bilateral foot pain (Primary Dx); Arthritis of right midfoot; Achilles tendinitis of right lower extremity; Hammertoe of left foot 04/26/2025 1:45 PM EDT [facility] [address] [address] Tramaine Bragg MD Bilateral foot pain from Last 3 Months Social History Tobacco Use Types Packs/Day Years [...] Mass Index 38.7 04/26/2025 2:15 PM EDT Plan of Treatment Health Maintenance Due Date Last Done Comments Annual Wellness Exam 1963 Hepatitis C Screening 1978 DTaP/TDaP/Td (1 - Tdap) 1979 Cologuard 2005 Colon Cancer Screening 2005 Colonoscopy 2005 FIT 2005 Sigmoidoscopy 2005 Virtual Colonography 2005 Pneumococcal Vaccine 50+ (1 of 1 - PCV) 2010 Zoster (1 of 2) 2010 COVID-19 Vaccine (1 - 2024-2 6 season) 2025 Influenza Vaccine Completed 04/18/2025 Hepatitis B Vaccine Aged Out No longe r eligible based on patient's age to complete this topic Meningococcal B Vaccine Aged Out No l onger eligible based on patient's age to complete this topic Procedures Procedure Name Priority Date/Time Associated Diagnosis Comments XR FOOT BILATERAL AP LATERAL AND OBLIQUE STANDING Routine 04/26/2025 2:08 PM EDT Bilateral foot pain from Last 3 Months Results * XR FOOT BILATERAL AP LATERAL AND OBLIQUE STANDING (04/26/2025 2:08 PM EDT) Narrative Genericuser, David - 04/26/2025 2:08 PM EDT Please see physician's note from office encounter for x-ray imaging result Tramaine Bragg MD IMG DIAGNOSTIC IMAGING ORDER QIAN Final Result from Last 3 Months Insurance [facility]
--- OUTSIDE RECORDS SUMMARY | 2025-05-09 10:17 | XMS_ITS | Clinical Summary ---
Author Organization [facility] Address [address] [place] [address] Care Team Providers Care Polymerization Supervisor Name Role Phone Juan Mcgill MD Primary Care Provider + [phone] Allergies Active Allergy Reactions Criticality Noted Date Comments Corticosteroids Other (See Comments) 11/15/2014 Medications pravastatin (PRAVACHOL) 20 MG tablet Take 1 tablet by mouth Daily. Active vitamin B-12 (CYANOCOBALAMIN) 500 MCG tablet Take 1 tablet by mouth Daily. Active Cholecalciferol (Vitamin D3) 50 MCG (1999 UT) tablet Active Vitamin E 400 units [...] [facility] Care Teams Polymerization Supervisor Relationship Specialty Start Date End Date Juan Mcgill MD [address] [place] [address] [place] [address] PCP - General Adolescent Medicine 11/18/23
[2025-05-09] MEDS: BARIUM SULFATE(READI-CAT2);450ML BOTTLE 450 ML PO (11:11)
[2025-05-09] MEDS: IOPAMIDOL-370 (76%);100ML BOTTLE 75 ML IV (11:11)
[2025-05-09] MEDS: SODIUM CHLORIDE 0.9% 10ML SYR (RAD ONLY) 10 ML IV (11:11)
== END 2025-05-09 23:59 | disposition home or self-care (01) ==
LOC: RAD 10:08
PROVIDERS: PCP Internal Medicine Adolescent Medicine; Visit Provider Surgery
DX: K76.9 Liver disease, unspecified (principal); R14.0 Abdominal distension (gaseous); R93.2 Abnormal findings on diagnostic imaging of liver and biliary tract
CPT/HCPCS: 74177; Q9967